=== PATIENT | female | born 1990 | race American Indian/Alaskan Native ===

== ENCOUNTER 2017-09-04 17:52 | Emergency (ER) | payer OTHER ==
[2017-09-04 19:03] LABS: Basophils % (Auto) 0.4 % (0.0-1.8); Eosinophils % (Auto) 0.6 % (0.0-4.3); Hematocrit 34.7 % (30.3-42.9); Hemoglobin 11.7 gm/dl (10.1-14.3); Lymphocytes # (Auto) 2.6 K/mm3 (1.2-5.4); Lymphocytes % (Auto) 43.4 % (13.4-35.0); Mean Corpuscular HGB Conc 34 % (30-34); Mean Corpuscular Hemoglobin 31 pg (28-32); Mean Corpuscular Volume 92 fl (79-97); Monocytes # (Auto) 0.5 K/mm3 (0.0-0.8); Monocytes % (Auto) 8.2 % (0.0-7.3); Platelet Count 324 K/mm3 (140-440); Red Blood Count 3.77 M/mm3 (3.65-5.03); Red Cell Distribution Width 13.7 % (13.2-15.2)
[2017-09-04 19:21] LABS: Alanine Aminotransferase 22 units/L (7-56); Albumin 4.3 g/dL (3.9-5); BUN/Creatinine Ratio 20; Blood Urea Nitrogen 10 mg/dL (7-17); Hemolysis Index 3
[2017-09-05 03:48] VITALS: BP 120/64
--- NOTE | 2017-09-05 04:42 | Ultrasound Report ---
FINAL REPORT EXAM: US OB TRANSVAGINAL HISTORY: Vaginal Bleeding TECHNIQUE: Transvaginal imaging was obtained of the pelvis with Doppler interrogation of the adnexa and uterus. FINDINGS: The uterus is anteverted measuring 10.4 cm x 6 cm x 6 cm. Within the uterus is a gestational sac with mean sac diameter 13.2 mm. There is corresponds to a 6 week 1 day . A yolk sac is seen. A pole is not identified. To the right of this is an additional cystic area in the uterus measuring 5 mm x 6 mm x 9 mm. As to whether this represents a subchorionic bleed versus an additional gestational sac is uncertain. There is a moderate amount of free fluid in the cul-de-sac. The right ovary measures 5.7 cm x 3.5 cm x 5.1 cm. There is a dominant anechoic cyst in the right ovary measures 3.4 cm in diameter. Additional benign follicles seen in the right ovary. The left ovary measures 5 cm x 3.3 cm x 3.7 cm. There are functional cyst in left ovary the largest measuring 2.7 cm in diameter. IMPRESSION: Intrauterine gestational sac corresponding to 6 week 1 day . A pole is not seen. Follow-up imaging is recommended to confirm an IUP or an incomplete . Additional cystic area in the right side of the uterus adjacent to the gestational sac. As to whether this represents a subchorionic hemorrhage or additional intrauterine gestational sac is uncertain. Once again follow-up study recommended. Moderate amount of free fluid in the cul-de-sac. An occult ectopic still cannot entirely be excluded. Anechoic functional cysts in both ovaries noted.
--- NOTE | 2017-09-05 04:45 | Ultrasound Report ---
FINAL REPORT EXAM: US OB < = 14 WEEKS FETUS HISTORY: pain TECHNIQUE: Transabdominal imaging was obtained the pelvis including Doppler interrogation of the adnexa. FINDINGS: The uterus is anteverted measuring 10.4 cm x 6 cm x 6 cm. Within the uterus is a gestational sac measuring 13.2 mm in diameter corresponding to a 6 week 1 day . Within the sac is a yolk sac. An embryo is not seen. Adjacent to the sac in the right-sided uterus is an additional sac-like structure. As to whether this represents 2nd gestational sac or possible subchorionic bleed is uncertain. It measures 5 mm x 6 mm x 9 mm. There is a moderate amount of free fluid in the pelvis. The right ovary measures 5.7 cm x 3.5 cm x 5.1 cm and reveals several functional cysts the largest measuring 3.4 cm in diameter. The left ovary measures 5 cm x 3.3 cm x 3.7 cm. There are benign-appearing follicles in left ovary with a functional cyst measuring up to 2.7 cm in diameter. The blood flow is normal to both ovaries. IMPRESSION: Intrauterine gestational sac corresponding to 6 week 1 day . A pole is not seen at this time. Repeat imaging is recommended to confirm a viable IUP or confirm retained products of conception. Additional cystic structure in the right-sided uterus as described. As to whether this represents an additional gestational sac or subchorionic hemorrhage is uncertain. Moderate amount of free fluid in the cul-de-sac. Given amount of fluid and occult ectopic cannot entirely be excluded. Benign functional cysts in both ovaries. No evidence of ovarian torsion
--- NOTE | 2017-09-05 04:48 | Emergency Department Report ---
ED Abdominal Pain HPI - General Chief Complaint: Abdominal Pain Stated Complaint: ABDOMINAL PAIN/NAUSEA Time Seen by Provider: 09/05/17 02:14 Source: patient Mode of arrival: Ambulatory Limitations: No Limitations - History of Present Illness MD Complaint: abdominal pain -: Gradual, week(s) (1) Location: suprapubic Radiation: back (lower back) Migration to: no migration Severity: mild Severity scale (0 -10): 2 Quality: aching Consistency: intermittent Improves With: nothing Worsens With: nothing Context: other (hx gastric bypass. Reports she called her surgeon in [place] who recommended the patient head to the ER for evaluation. ) Associated Symptoms: nausea. denies: vomiting, diarrhea, chills, constipation, dysuria, hematemesis, melena, hematuria, anorexia, syncope - Related Data LMP (females 10-50): 1 month Allergies Allergy/AdvReac Type Severity Reaction Status Date / Time cephalexin [From Keflex] Allergy Vomiting Verified 09/04/17 18:03 ED Review of Systems ROS: Stated complaint: ABDOMINAL PAIN/NAUSEA Other details as noted in HPI Other: GENERAL: No weight change, fatigue, weakness, fever, chills, or night sweats SKIN: No changes in skin or hair, no itching, no rashes, no jaundice HEAD: No trauma, headache, or visual changes EYES: No blurriness, tearing, itching, acute visual loss, conjunctival discoloration, or scleral icterus EARS: No hearing loss, tinnitus, vertigo, or earache NOSE: No rhinorrhea, stuffiness, sneezing, itching, or epistaxis MOUTH: No bleeding gums, hoarseness, sore throat, or swelling CARDIAC: No new murmur, chest pain, palpitations, dyspnea on exertion, orthopnea , PND, or edema RESPIRATORY: No shortness of breath, wheeze, cough, sputum production, hemoptysis, pneumonia, asthma, bronchitis, or emphysema GI: No change in appetite,vomiting, dysphagia, change in bowel frequency, diarrhea, constipation, bleeding, hematemesis, melena, hematochezia URINARY: No frequency, urgency, polyuria, dysuria, hematuria, or incontinence MUSCULOSKELETAL: No muscle weakness, joint stiffness, decrease in range of motion, redness, swelling NEUROLOGIC: No loss of sensation, numbness, tingling, tremors, weakness, paralysis, seizures HEMATOLOGIC: No anemia, easy bruising, bleeding, petechiae, or purpura ENDOCRINE: No hot or cold intolerance, sweating, polyuria, polydipsia or, polyphagia no thyroid problems PSYCHIATRIC: No change in mood, no anxiety, no depression GENITAL: Female: Missed last menstrual period and did not take a home test. no frequency or dysmenorrhea, no discharge, no bleeding ED Past Medical Hx - Past Medical History Previous Medical History?: No - Surgical History Additional Surgical History: gastric bypass - Social History Smoking Status: Never Smoker Substance Use Type: Alcohol ED Physical Exam - General Limitations: No Limitations - Other Other exam information: GENERAL: Patient in no acute distress HEAD: Normocephalic, atraumatic EYES: PERRLA, EOM intact, no scleral icterus, visual calzada and acuity wnl HEART: Regular rate and rhythm, no murmur, S1-S2 are auscultated, pulses are symmetric LUNGS: bilateral breath sounds. No wheezing, rales, rhonchi ABDOMEN: Normal bowel sounds, no tenderness, no rebound, no guarding, no masses , no CVA tenderness MUSCULOSKELETAL: Normal joint range of motion, no redness, no swelling, no tenderness NEUROLOGIC: GCS 15, Alert and Oriented x3, Cranial nerves intact, normal sensation, normal strength, normal gait, no cerebellar deficit PSYCHIATRIC: No homicidal or suicidal ideation, no anxiety, no depression, no hallucinations SKIN: Skin is warm and dry, no wounds, no rashes ED Course Vital Signs 09/04/17 09/05/17 09/05/17 18:03 02:05 02:08 Temperature 99.2 F Pulse Rate 78 75 Respiratory 18 18 18 Rate Blood Pressure 123/73 Blood Pressure 139/88 [Right] O2 Sat by Pulse 100 Oximetry 09/05/17 03:48 Temperature 98.5 F Pulse Rate 66 Respiratory 18 Rate Blood Pressure Blood Pressure 120/64 [Right] O2 Sat by Pulse 100 Oximetry ED Medical Decision Making - Lab Data Result diagrams: 09/04/17 18:28 09/04/17 18:28 Laboratory Results - last 24 hr 09/04/17 09/04/17 09/04/17 18:28 18:28 18:28 WBC 5.9 RBC 3.77 Hgb 11.7 Hct 34.7 MCV 92 MCH 31 MCHC 34 RDW 13.7 Plt Count 324 Lymph % (Auto) 43.4 H Nobles % (Auto) 8.2 H Eos % (Auto) 0.6 Baso % (Auto) 0.4 Lymph # 2.6 Nobles # 0.5 Eos # 0.0 Baso # 0.0 Seg Neutrophils % 47.4 Seg Neutrophils # 2.8 Sodium 139 Potassium 4.0 Chloride 101.5 Carbon Dioxide 24 Anion Gap 18 BUN 10 Creatinine 0.5 L Estimated GFR > 60 BUN/Creatinine Ratio 20 Glucose 84 Calcium 9.0 Total Bilirubin 0.60 AST 19 ALT 22 Alkaline Phosphatase 63 Total Protein 7.5 Albumin 4.3 Albumin/Globulin Ratio 1.3 Lipase HCG, Qual Positive HCG, Quant 09/05/17 09/05/17 02:34 02:34 WBC RBC Hgb Hct MCV MCH MCHC RDW Plt Count Lymph % (Auto) Nobles % (Auto) Eos % (Auto) Baso % (Auto) Lymph # Nobles # Eos # Baso # Seg Neutrophils % Seg Neutrophils # Sodium Potassium Chloride Carbon Dioxide Anion Gap BUN Creatinine Estimated GFR BUN/Creatinine Ratio Glucose Calcium Total Bilirubin AST ALT Alkaline Phosphatase Total Protein Albumin Albumin/Globulin Ratio Lipase 21 HCG, Qual HCG, Quant 08471 H - Radiology Data Radiology results: report reviewed - Medical Decision Making At [address] OB updated. Recommends discharge with outpatient follow up. Patient comfortable. Updated with results. Plan discharge with outpatient follow up. Agrees to return if worsening. Critical care attestation.: If time is entered above; I have spent that time in minutes in the direct care of this critically ill patient, excluding procedure time. ED Disposition Clinical Impression: Abdominal pain affecting Disposition: - TO HOME OR SELFCARE Is pt being admited?: No Condition: Stable Instructions: Abdominal Pain in (ED) Referrals: KAREN CLAY MD [Primary Care Provider] - 2-3 Days STEVEN SILVER MD [Staff Physician] - 2-3 Days [facility] [Outside] - as needed Time of Disposition: 05:22
== END 2017-09-05 05:35 | disposition home or self-care (01) ==
LOC: ED 17:52
DX: O26.891 Other specified pregnancy related conditions, first trimester (principal); R10.9 Unspecified abdominal pain; Z3A.01 Less than 8 weeks gestation of pregnancy
CPT/HCPCS: 36415; 76801; 76817; 80053; 83690; 84702; 84703; 85025; 99284

== ENCOUNTER 2017-09-14 06:40 | Emergency (ER) | payer OTHER ==
[2017-09-14 09:36] LABS: Bilirubin,Urine NEG (Negative); Blood,Urine NEG (Negative); Color,Urine Amber (Yellow); Mucus,Urine 3+ /HPF
[2017-09-14 09:37] LABS: HCG Qualitative,Urine Negative (Negative)
[2017-09-14] MEDS ORDERED: TYLENOL PO ONE (10:42)
--- NOTE | 2017-09-14 10:43 | Emergency Department Report ---
ED General Adult HPI - General Chief complaint: Abdominal Pain Stated complaint: ABD PAIN Time Seen by Provider: 09/14/17 10:30 Source: patient, family, RN notes reviewed, old records reviewed Mode of arrival: Stretcher Limitations: No Limitations - History of Present Illness Initial comments: This is a 27-year-old female who is unknown to this provider previously. She has a past surgical history for gastric bypass in October 2016, is 1, para 0, reports her last menstrual period is July 29. Her [facility]NAGER physician is with [facility]. Patient was seen in this emergency department last week with a complaint of abdominal pain. Patient had an ultrasound which showed an intrauterine gestational sac corresponding to a 6 week 1 day . In addition, there was an additional cystic area in the right side of the uterus adjacent to the gestational sac, uncertain if this represented a subchorionic hemorrhage on additional intrauterine gestational sac. In addition, she was also found to have moderate amount of free fluid in the cul-de-sac, with an occult ectopic is not excluded. The patient presents to the ER with a complaint of abdominal pain. The abdominal pain is suprapubic. It does not radiate anywhere. It increases with palpation and decreases with rest. The patient reports the pain has been present for 3 weeks. She denies irritative urinary symptoms, she does report constipation. She last defecated 3 days ago. She is passing gas. She reports that today while attempting to defecate she was straining so hard that she fell off of the toilet, hit her right shoulder thinks she may have passed out for a quick second but is not sure. She denies chest pain, shortness of breath, leg pain, leg swelling. -: Gradual Radiation: abdomen Severity scale (0 -10): 0 Quality: aching Consistency: intermittent Improves with: rest Worsens with: movement, other (attempting to defecate) Associated Symptoms: loss of appetite, malaise, nausea/vomiting, syncope, weakness. denies: confusion, chest pain, cough, diaphoresis, fever/chills, headaches, rash, seizure, shortness of breath - Related Data Home Medications Medication Instructions Recorded Confirmed Last Taken Ondansetron [Zofran Odt] 4 mg PO PRN PRN 09/14/17 09/14/17 Unknown Previous Rx's Medication Instructions Recorded Last Taken Type Acetaminophen [Tylenol Arthritis] 650 mg PO Q6HR PRN #30 tablet.er 09/14/17 Unknown Rx Doxylamine Succinate/Vit B6 1 each PO QHS PRN #30 tablet. 09/14/17 Unknown Rx [Marcella Dutta 10-10 mg Tablet] Vit Calc,Iron,Folic 1 each PO QDAY #30 tablet 09/14/17 Unknown Rx [ Vitamins] Allergies Allergy/AdvReac Type Severity Reaction Status Date / Time cephalexin [From Keflex] Allergy Vomiting Verified 09/14/17 06:52 ED Review of Systems ROS: Stated complaint: ABD PAIN Other details as noted in HPI Constitutional: denies: fever Eyes: denies: vision change ENT: denies: epistaxis Respiratory: denies: cough Cardiovascular: syncope. denies: chest pain Gastrointestinal: abdominal pain, constipation Genitourinary: denies: dysuria Musculoskeletal: arthralgia (complains of right shoulder pain) Skin: denies: lesions Neurological: denies: headache, weakness Psychiatric: anxiety ED Past Medical Hx - Past Medical History Hx Hypertension: Yes Hx Diabetes: Yes Additional medical history: hyperlipidemia - Surgical History Past Surgical History?: No Additional Surgical History: gastric bypass - Social History Smoking Status: Never Smoker Substance Use Type: None - Medications Home Medications: Home Medications Medication Instructions Recorded Confirmed Last Taken Type Acetaminophen [Tylenol Arthritis] 650 mg PO Q6HR PRN #30 tablet.er 09/14/17 Unknown Rx Doxylamine Succinate/Vit B6 1 each PO QHS PRN #30 tablet. 09/14/17 Unknown Rx [Marcella Dutta 10-10 mg Tablet] Ondansetron [Zofran Odt] 4 mg PO PRN PRN 09/14/17 09/14/17 Unknown History Vit Calc,Iron,Folic 1 each PO QDAY #30 tablet 09/14/17 Unknown Rx [ Vitamins] ED Physical Exam - General Limitations: No Limitations General appearance: alert, in no apparent distress - Head Head exam: Present: atraumatic, normocephalic - Eye Eye exam: Present: normal appearance, PERRL, EOMI, other (visual acuity intact to finger counting, color perception, reading at a close distance). Absent: nystagmus - ENT ENT exam: Present: normal exam, normal orophraynx, mucous membranes moist, normal external ear exam - Neck Neck exam: Present: normal inspection, full ROM - Respiratory Respiratory exam: Present: normal lung sounds bilaterally. Absent: respiratory distress, chest wall tenderness - Cardiovascular Cardiovascular Exam: Present: regular rate, normal rhythm, normal heart sounds. Absent: systolic murmur, diastolic murmur, rubs, gallop - GI/Abdominal GI/Abdominal exam: Present: soft, tenderness (there is suprapubic tenderness. There is no right lower quadrant tenderness. There is no right upper quadrant tenderness), normal bowel sounds. Absent: distended - Extremities Exam Extremities exam: Present: normal inspection, full ROM, normal capillary refill , other (Extraocular movements intact. Tongue midline. No facial droop. Facial sensation intact to light touch in the V1, V2, V3 distribution bilaterally. 5 and 5 strength in 4 extremities.. Sensation is intact to light touch in 4 extremities.). Absent: pedal edema, joint swelling, calf tenderness - Back Exam Back exam: Present: normal inspection, full ROM, other (full range of motion to the right shoulder. There is no redness, pus or streaking. There is no obvious deformity.). Absent: paraspinal tenderness, vertebral tenderness - Neurological Exam Neurological exam: Present: alert, oriented X3, CN II-XII intact, normal gait, other (Extraocular movements intact. Tongue midline. No facial droop. Facial sensation intact to light touch in the V1, V2, V3 distribution bilaterally. 5 and 5 strength in 4 extremities.. Sensation is intact to light touch in 4 extremities.). Absent: motor sensory deficit - Psychiatric Psychiatric exam: Present: normal affect, normal mood - Skin Skin exam: Present: warm, dry, intact, normal color. Absent: rash ED Course Vital Signs 09/14/17 09/14/17 09/14/17 06:50 06:54 09:25 Temperature 98.1 F 98.1 F Pulse Rate 76 76 70 Pulse Rate [ Lying] Pulse Rate [ Sitting] Pulse Rate [ Standing] Respiratory 18 18 16 Rate Blood Pressure 110/64 108/54 Blood Pressure [Lying] Blood Pressure 110/64 [Right] Blood Pressure [Sitting] Blood Pressure [Standing] O2 Sat by Pulse 100 100 100 Oximetry 09/14/17 09/14/17 09/14/17 09:30 09:36 09:46 Temperature Pulse Rate Pulse Rate [ Lying] Pulse Rate [ Sitting] Pulse Rate [ Standing] Respiratory 16 Rate Blood Pressure 105/54 105/54 Blood Pressure [Lying] Blood Pressure [Right] Blood Pressure [Sitting] Blood Pressure [Standing] O2 Sat by Pulse 100 99 100 Oximetry 09/14/17 09/14/17 09/14/17 10:00 10:16 10:30 Temperature Pulse Rate Pulse Rate [ Lying] Pulse Rate [ Sitting] Pulse Rate [ Standing] Respiratory Rate Blood Pressure 109/58 109/58 119/63 Blood Pressure [Lying] Blood Pressure [Right] Blood Pressure [Sitting] Blood Pressure [Standing] O2 Sat by Pulse 99 100 100 Oximetry 09/14/17 09/14/17 09/14/17 10:46 11:00 11:16 Temperature Pulse Rate Pulse Rate [ Lying] Pulse Rate [ Sitting] Pulse Rate [ Standing] Respiratory Rate Blood Pressure 119/63 120/59 109/58 Blood Pressure [Lying] Blood Pressure [Right] Blood Pressure [Sitting] Blood Pressure [Standing] O2 Sat by Pulse 100 100 99 Oximetry 09/14/17 11:21 Temperature Pulse Rate Pulse Rate [ 64 Lying] Pulse Rate [ 65 Sitting] Pulse Rate [ 75 Standing] Respiratory Rate Blood Pressure Blood Pressure 112/52 [Lying] Blood Pressure [Right] Blood Pressure 116/56 [Sitting] Blood Pressure 120/59 [Standing] O2 Sat by Pulse Oximetry - Reevaluation(s) Reevaluation #1: 09/14/17 11:10 Differential diagnosis, including but not limited to: Constipation, miscarriage , orthostasis, shoulder contusion Assessment and plan: 27-year-old female with a first lifetime , history of gastric bypass, with a few weeks of constipation, no right lower quadrant abdominal pain, as per her family/mother, patient is not eating or drinking adequate quantity of water, nor is she consuming enough fruits, fibers , vegetables. Patient reports episode of possible syncope while attempting to defecate, this is most likely a vasovagal event versus orthostatic. She's not had any episodes of tachycardia or hypoxia while here in the emergency department. Extensive discussion had with the patient and her mother. THE patient to start diet and lifestyle modifications, including increasing water consumption and to consume more fruits, fibers, vegetables. In addition, I have counseled her to follow-up with a local bariatric surgeon for her history of gastric bypass. We will repeat her laboratory studies, provide soapsuds enema, check a type and screen as was not performed last time repeat her pelvic ultrasound. We will reassess. Given the constellation of information and data, I highly doubt this her episode of syncope was preceded by a pulmonary embolus. 09/14/17 11:11 Reevaluation #2: 09/14/17 14:09 Patient had a very large bowel movement after the soap suds enema, and reports that she feels much improved. Belly soft on repeat exam. She is Rh-. RhoGAM is ordered. No active vomiting. No episodes of loss of consciousness. Pelvic ultrasound interpretation is pending at this time. Reevaluation #3: 09/14/17 15:07 The patient is Rh-. She is given RhoGAM. Ultrasound demonstrates the following findings: Impressions: 1. Intrauterine twin with only one viable fetus identified. 2. Large right ovarian cyst most likely representing corpus luteum. 3. Uterine fibroid. Belly remained soft on repeat examination. Patient will be discharged at this time. Diet and lifestyle medications have been exhaustively reviewed. ED Medical Decision Making - Lab Data Result diagrams: 09/14/17 11:34 09/14/17 11:34 Vital Signs 09/14/17 09/14/17 09/14/17 06:50 06:54 09:25 Temperature 98.1 F 98.1 F Pulse Rate 76 76 70 Respiratory 18 18 16 Rate Blood Pressure 110/64 108/54 Blood Pressure 110/64 [Right] O2 Sat by Pulse 100 100 100 Oximetry 09/14/17 09/14/17 09/14/17 09:30 09:36 09:46 Temperature Pulse Rate Respiratory 16 Rate Blood Pressure 105/54 105/54 Blood Pressure [Right] O2 Sat by Pulse 100 99 100 Oximetry 09/14/17 09/14/17 09/14/17 10:00 10:16 10:30 Temperature Pulse Rate Respiratory Rate Blood Pressure 109/58 109/58 119/63 Blood Pressure [Right] O2 Sat by Pulse 99 100 100 Oximetry 09/14/17 10:46 Temperature Pulse Rate Respiratory Rate Blood Pressure 119/63 Blood Pressure [Right] O2 Sat by Pulse 100 Oximetry Lab Results 09/14/17 Range/Units 09:00 Urine Color Christy (Yellow) Urine Turbidity Clear (Clear) Urine pH 5.0 (5.0-7.0) Ur Specific Winnie 1.029 (1.003-1.030) Urine Protein 30 mg/dl (Negative) mg/dL Urine Glucose (UA) Neg (Negative) mg/dL Urine Ketones 80 (Negative) mg/dL Urine Blood Neg (Negative) Urine Nitrite Neg (Negative) Urine Bilirubin Neg (Negative) Urine Urobilinogen 4.0 (<2.0) mg/dL Ur Leukocyte Esterase Neg (Negative) Urine WBC (Auto) 2.0 (0.0-6.0) /HPF Urine RBC (Auto) 3.0 (0.0-6.0) /HPF U Epithel Cells (Auto) 8.0 (0-13.0) /HPF Urine Mucus 3+ /HPF Urine HCG, Qual Negative (Negative) - EKG Data -: EKG Interpreted by Ms EKG shows normal: sinus rhythm, axis, intervals, QRS complexes, ST-T waves - Radiology Data Radiology results: report reviewed, image reviewed Print Report Referring Physician: IVANNA ZULUAGA Patient Name: DAINA TEE Date of : 1990 Sex: Female Report Date: 2017-09-14 Report Status: Finalized Findings [facility] [address] [place] [address] Ultrasound Report Signed Patient: DAINA TEE MR#: [id number] : 1990 Acct:[id number] Age/Sex: 27 / F ADM Date: 09/14/17 Loc: ED Attending Dr: Ordering Physician: IVANNA ZULUAGA MD Date of Service: 09/14/17 Procedure(s): US OB transvaginal Accession Number(s): [id number] cc: IVANNA ZULUAGA MD OB ultrasound: with cramping. Endovaginal and transabdominal imaging performed. There is an anteverted uterus measuring 6.2 x 8.1 x 11 cm. A single myometrial isoechoic mass noted on the right side measuring 2.2 cm. There is a twin within the endometrium. Baby A is on the right side and has a pole is 9.6 mm equivalent to a 7 week zero day gestation. heart motion 137 beats minute is identified. On the left there is an empty gestational sac measuring 2.5 mm which would be equivalent to a 7 week 4 day gestation. The right ovary measures 6.2 cm and contains a 3.9 cm cyst. The left ovary measures 4.9 cm and contains a 1.5 cm cyst. Is a moderate volume of clear free fluid in the posterior cul-de-sac. Impressions: 1. Intrauterine twin with only one viable fetus identified. 2. Large right ovarian cyst most likely representing corpus luteum. 3. Uterine fibroid. Transcribed By: TAMMY Dictated By: ISAÍAS AVILES MD Electronically Authenticated By: MARY Critical care attestation.: If time is entered above; I have spent that time in minutes in the direct care of this critically ill patient, excluding procedure time. ED Disposition Clinical Impression: Constipation, Twin gestation in first trimester Disposition: - TO HOME OR SELFCARE Is pt being admited?: No Does the pt Need Aspirin: No Condition: Stable Instructions: Constipation (ED), High Fiber Diet (ED) Additional Instructions: Rest, and avoid heavy lifting. Avoid strenuous physical activity. Drink 6-8 cups of water per day. Eat plenty of fruits, fibers, vegetables. Constipation may take 4-6 weeks to completely improve. Follow-up with your bank analyst within the next week. Ultrasound demonstrated the following findings: Impressions: 1. Intrauterine twin with only one viable fetus identified. 2. Large right ovarian cyst most likely representing corpus luteum. 3. Uterine fibroid. Please note that one of the twin gestation is not viable, and patient will likely experience a miscarriage. Patient should not have sex until cleared by a bank analyst. In addition, patient should follow-up with a bariatric surgeon within the next month. Dr. Saunders is a local bariatric surgeon. Return to the ER right away with new pain, worsened pain, migration of pain, fevers, chills, lethargy, irritability, projectile vomiting, change in mental status, confusion, inability to tolerate liquid feeds. Referrals: PRIMARY CARE, [Primary Care Provider] - 3-5 Days [facility] [Provider Group] - 3-5 Days RACHEL SAUNDERS MD [Staff Physician] - 3-5 Days
[2017-09-14] MEDS ORDERED: D5/0.45NS 1,000 ML IV SCH (11:00)
[2017-09-14 11:55] LABS: Basophils % (Auto) 0.4 % (0.0-1.8); Eosinophils % (Auto) 0.3 % (0.0-4.3); Hematocrit 33.8 % (30.3-42.9); Hemoglobin 11.5 gm/dl (10.1-14.3); Lymphocytes # (Auto) 1.8 K/mm3 (1.2-5.4); Lymphocytes % (Auto) 26.5 % (13.4-35.0); Mean Corpuscular HGB Conc 34 % (30-34); Mean Corpuscular Hemoglobin 31 pg (28-32); Mean Corpuscular Volume 92 fl (79-97); Monocytes # (Auto) 0.6 K/mm3 (0.0-0.8); Monocytes % (Auto) 8.5 % (0.0-7.3); Red Blood Count 3.68 M/mm3 (3.65-5.03); Red Cell Distribution Width 13.2 % (13.2-15.2)
[2017-09-14 12:03] LABS: Platelet Count 294 K/mm3 (140-440)
[2017-09-14] MEDS: ZOFRAN IV ONE ×2 (12:08→14:07)
[2017-09-14 12:12] LABS: Alanine Aminotransferase 16 units/L (7-56); BUN/Creatinine Ratio 25; Blood Urea Nitrogen 10 mg/dL (7-17); Calcium 9.3 mg/dL (8.4-10.2); Hemolysis Index 11
[2017-09-14] MEDS ORDERED: ZOFRAN ONE (14:02)
--- NOTE | 2017-09-14 14:33 | Ultrasound Report ---
OB ultrasound: with cramping. Endovaginal and transabdominal imaging performed. There is an anteverted uterus measuring 6.2 x 8.1 x 11 cm. A single myometrial isoechoic mass noted on the right side measuring 2.2 cm. There is a twin within the endometrium. Baby A is on the right side and has a pole is 9.6 mm equivalent to a 7 week zero day gestation. heart motion 137 beats minute is identified. On the left there is an empty gestational sac measuring 2.5 mm which would be equivalent to a 7 week 4 day gestation. The right ovary measures 6.2 cm and contains a 3.9 cm cyst. The left ovary measures 4.9 cm and contains a 1.5 cm cyst. Is a moderate volume of clear free fluid in the posterior cul-de-sac. Impressions: 1. Intrauterine twin with only one viable fetus identified. 2. Large right ovarian cyst most likely representing corpus luteum. 3. Uterine fibroid.
[2017-09-14 15:42] VITALS: BP 116/64
== END 2017-09-14 15:42 | disposition home or self-care (01) ==
LOC: ED 06:40
DX: O26.891 Other specified pregnancy related conditions, first trimester (principal); K59.00 Constipation, unspecified; I10 Essential (primary) hypertension; E11.9 Type 2 diabetes mellitus without complications; E78.5 Hyperlipidemia, unspecified; Z88.1 Allergy status to other antibiotic agents; Z3A.01 Less than 8 weeks gestation of pregnancy
CPT/HCPCS: 36415; 76802; 76817; 80053; 81001; 81025; 83735; 84702; 85025; 86850; 86900; 86901; 93005; 93010; 96374; 99285; J2405; J2790

== ENCOUNTER 2017-09-26 12:53 | Inpatient (IN) | payer OTHER ==
[2017-09-26] MEDS ORDERED: ZOFRAN IV PRN (13:48)
[2017-09-26] MEDS ORDERED: D5LR 1,000 ML IV SCH ×2 (14:00)
[2017-09-26 16:05] LABS: Hematocrit 33.3 % (30.3-42.9); Hemoglobin 11.6 gm/dl (10.1-14.3); Mean Corpuscular HGB Conc 35 % (30-34); Mean Corpuscular Hemoglobin 31 pg (28-32); Mean Corpuscular Volume 89 fl (79-97); Platelet Count 239 K/mm3 (140-440); Red Blood Count 3.74 M/mm3 (3.65-5.03); Red Cell Distribution Width 12.6 % (13.2-15.2)
[2017-09-26 16:26] LABS: Lipase 147 units/L (13-60)
[2017-09-26 16:29] LABS: Alanine Aminotransferase 12 units/L (7-56); Albumin 4.1 g/dL (3.9-5); BUN/Creatinine Ratio 28; Blood Urea Nitrogen 11 mg/dL (7-17); Calcium 9.7 mg/dL (8.4-10.2); Hemolysis Index 11
[2017-09-26 16:31] LABS: Bilirubin,Direct < 0.2 mg/dL (0-0.2)
[2017-09-26 16:42] LABS: Hepatitis A Antibody IgM Non-Reactive (NonReactive); Hepatitis B Core IgM Non-Reactive (NonReactive); Hepatitis B Surface Antigen Non-Reactive (Negative); Hepatitis C Virus Antibody Non-Reactive (NonReactive)
[2017-09-26] MEDS: PHENERGAN PR SCH ×2 (17:11→22:26)
[2017-09-26] MEDS: REGLAN IV SCH ×2 (17:11→21:21)
--- NOTE | 2017-09-26 17:46 | History and Physical Report ---
History of Present Illness Date of examination: 09/26/17 Date of admission: 09/26/17 13:48 Chief complaint: sever nausea and vomiting in with significant weight loss History of present illness: This is a 27 yo at 8 weeks came in for appt for OB. Patient has been seen prior and noted to have twin with one loss. She states that she has lost 40 pounds since beginning of starting out at 225 current weight 189. Mother states that she can not keep food down and unable to eat anything for over 1 week. She has a hx of gastric bypass surgery. She also has a hx of diabets, herpes, sleep apnea, pcos, and hypertension. She denies any vaginal bleeding. Minimal cramping nor urinary sx. Past History Past Medical History: hypertension, diabetes, other (sleep apnea and obesity) Past Surgical History: gastric bypass, other (nose surgery ) Family/Genetic History: diabetes, hypertension Social history: no significant social history, single, alcohol abuse. denies: smoking, prescription drug abuse - Obstetrical History Expected Date of Delivery: 05/05/18 Actual Gestation: 8 Week(s) 3 Day(s) Medications and Allergies Allergies Allergy/AdvReac Type Severity Reaction Status Date / Time cephalexin [From Keflex] Allergy Vomiting Verified 09/14/17 06:52 Home Medications Medication Instructions Recorded Confirmed Last Taken Type Acetaminophen [Tylenol Arthritis] 650 mg PO Q6HR PRN #30 tablet.er 09/14/17 Unknown Rx Doxylamine Succinate/Vit B6 1 each PO QHS PRN #30 tablet. 09/14/17 Unknown Rx [Marcella Dutta 10-10 mg Tablet] Ondansetron [Zofran Odt] 4 mg PO PRN PRN 09/14/17 09/14/17 Unknown History Vit Calc,Iron,Folic 1 each PO QDAY #30 tablet 09/14/17 Unknown Rx [ Vitamins] Active Meds: Active Medications Lactated Ringer's (Lactated Ringers) 1,000 mls @ 125 mls/hr IV DIRECT HALEY Dextrose/Lactated Ringer's (D5lr) 1,000 mls @ 500 mls/hr IV DIRECT HALEY Stop: 09/27/17 15:59 Last Admin: 09/26/17 17:11 Dose: 500 mls/hr Dextrose/Lactated Ringer's (D5lr) 1,000 mls @ 150 mls/hr IV DIRECT HALEY Metoclopramide HCl (Reglan) 10 mg IV Q6H [facility] Last Admin: 09/26/17 17:11 Dose: 10 mg Multivitamins/Iron/Calcium ( Vitamin) 1 each PO QDAY [facility] Ondansetron HCl (Zofran) 4 mg IV Q6H PRN PRN Reason: N/V unrelieved by Reglan Promethazine HCl (Phenergan) 25 mg [place] Q6H [facility] Last Admin: 09/26/17 17:11 Dose: 25 mg Review of Systems All systems: negative Gastrointestinal: nausea, vomiting - Vital Signs Vital signs: Vital Signs Temp Pulse Resp BP Pulse Ox 98.9 F 75 16 113/57 100 09/26/17 16:41 09/26/17 16:41 09/26/17 16:41 09/26/17 16:41 09/26/17 16:41 Temp Pulse Resp BP Pulse Ox 98.9 F 75 16 113/57 100 09/26/17 16:41 09/26/17 16:41 09/26/17 16:41 09/26/17 16:41 09/26/17 16:41 - Physical Exam Breasts: Positive: normal Cardiovascular: Regular rate, Normal S1 Lungs: Positive: Clear to auscultation, Normal air movement Abdomen: Positive: normal appearance, soft, tenderness, normal bowel sounds. Negative: distention, guarding Extremities: Positive: normal Deep Tendon Reflex Grade: Normal +2 Results Result Diagrams: 09/26/17 15:35 09/26/17 15:35 Abnormal lab results 09/26/17 09/26/17 09/26/17 Range/Units 15:35 15:35 15:35 MCHC 35 H (30-34) % RDW 12.6 L (13.2-15.2) % Sodium 135 L (137-145) mmol/L Chloride 96.2 L (98-107) mmol/L Carbon Dioxide 17 L (22-30) mmol/L Creatinine 0.4 L (0.7-1.2) mg/dL Magnesium 1.60 L (1.7-2.3) mg/dL Lipase 147 H (13-60) units/L TSH (0.270-4.200) mlU/mL 09/26/17 Range/Units 15:35 MCHC (30-34) % RDW (13.2-15.2) % Sodium (137-145) mmol/L Chloride (98-107) mmol/L Carbon Dioxide (22-30) mmol/L Creatinine (0.7-1.2) mg/dL Magnesium (1.7-2.3) mg/dL Lipase (13-60) units/L TSH 0.011 L (0.270-4.200) mlU/mL All other labs normal. Assessment and Plan IUP 8 weeks ( pratt IUP with loss of twin gestation ( di/di) Hyperemesis gravidarum IVF, labs IV antiemetics reglan, phenergan, zofran close monitor NPO advance as tolerated
[2017-09-26] MEDS: LACTATED RINGERS 1,000 ML IV SCH (22:44)
[2017-09-27] MEDS: REGLAN IV SCH ×4 (01:26→20:51)
[2017-09-27] MEDS: PHENERGAN PR SCH ×4 (01:28→20:00)
[2017-09-27 03:15] LABS: Bacteria,Urine 2+ /HPF (Negative); Bilirubin,Urine NEG (Negative); Blood,Urine NEG (Negative); Color,Urine Yellow (Yellow); Hyaline Casts,Urine 18 /LPF; Mucus,Urine 3+ /HPF
[2017-09-27] MEDS: LACTATED RINGERS 1,000 ML IV SCH ×3 (06:39→20:52)
--- NOTE | 2017-09-27 09:13 | Progress Note ---
Assessment and Plan A: IUP at 7 weeks Hyperemesis P: Progress diet Wean meds to po Subjective - Subjective Date of service: 09/27/17 Patient reports: new complaints, other (no vomiting since admit. Nausea only), no loss of fluid, no vaginal bleeding, no movement normal, no contractions Objective - Vital Signs Vital Signs: Vital Signs - 12hr 09/27/17 09/27/17 09/27/17 00:59 05:05 07:20 Temperature 98.4 F 98.2 F 98.8 F Pulse Rate 76 75 73 Respiratory 18 18 18 Rate Blood Pressure 113/63 112/57 110/57 [Right] O2 Sat by Pulse 100 Oximetry - Exam Breasts: deferred Abdomen: Present: normal appearance, soft. Absent: distention, tenderness - Labs Labs: Abnormal Labs 09/26/17 09/26/17 09/26/17 15:35 15:35 15:35 MCHC 35 H RDW 12.6 L Sodium 135 L Chloride 96.2 L Carbon Dioxide 17 L Creatinine 0.4 L Magnesium 1.60 L Lipase 147 H TSH 09/26/17 15:35 MCHC RDW Sodium Chloride Carbon Dioxide Creatinine Magnesium Lipase TSH 0.011 L Laboratory Results - last 24 hr 09/26/17 09/26/17 09/26/17 15:35 15:35 15:35 WBC 5.6 RBC 3.74 Hgb 11.6 Hct 33.3 MCV 89 MCH 31 MCHC 35 H RDW 12.6 L Plt Count 239 Sodium 135 L Potassium 4.7 Chloride 96.2 L Carbon Dioxide 17 L Anion Gap 27 BUN 11 Creatinine 0.4 L Estimated GFR > 60 BUN/Creatinine Ratio 28 Glucose 83 Calcium 9.7 Magnesium 1.60 L Total Bilirubin 0.60 Direct Bilirubin < 0.2 Indirect Bilirubin 0.4 AST 15 ALT 12 Alkaline Phosphatase 57 Total Protein 7.1 Albumin 4.1 Albumin/Globulin Ratio 1.4 Amylase 120 Lipase 147 H TSH Urine Color Urine Turbidity Urine pH Ur Specific [place] Urine Protein Urine Glucose (UA) Urine Ketones Urine Blood Urine Nitrite Urine Bilirubin Urine Urobilinogen Ur Leukocyte Esterase Urine WBC (Auto) Urine RBC (Auto) U Epithel Cells (Auto) Urine Bacteria (Auto) Hyaline Casts Urine Mucus Hepatitis A IgM Ab Hep Bs Antigen Hep B Core IgM Ab Hepatitis C Antibody 09/26/17 09/26/17 09/27/17 15:35 15:35 02:30 WBC RBC Hgb Hct MCV MCH MCHC RDW Plt Count Sodium Potassium Chloride Carbon Dioxide Anion Gap BUN Creatinine Estimated GFR BUN/Creatinine Ratio Glucose Calcium Magnesium Total Bilirubin Direct Bilirubin Indirect Bilirubin AST ALT Alkaline Phosphatase Total Protein Albumin Albumin/Globulin Ratio Amylase Lipase TSH 0.011 L Urine Color Yellow Urine Turbidity Hazy Urine pH 6.0 Ur Specific [place] 1.029 Urine Protein 100 mg/dl Urine Glucose (UA) Neg Urine Ketones 80 Urine Blood Neg Urine Nitrite Neg Urine Bilirubin Neg Urine Urobilinogen 2.0 Ur Leukocyte Esterase Neg Urine WBC (Auto) 5.0 Urine RBC (Auto) 9.0 U Epithel Cells (Auto) 3.0 Urine Bacteria (Auto) 2+ Hyaline Casts 18 Urine Mucus 3+ Hepatitis A IgM Ab Non-reactive Hep Bs Antigen Non-reactive Hep B Core IgM Ab Non-reactive Hepatitis C Antibody Non-reactive 09/27/17 02:30 WBC RBC Hgb Hct MCV MCH MCHC RDW Plt Count Sodium Potassium Chloride Carbon Dioxide Anion Gap BUN Creatinine Estimated GFR BUN/Creatinine Ratio Glucose Calcium Magnesium Total Bilirubin Direct Bilirubin Indirect Bilirubin AST ALT Alkaline Phosphatase Total Protein Albumin Albumin/Globulin Ratio Amylase Lipase TSH Urine Color Urine Turbidity Urine pH Ur Specific [place] Urine Protein Urine Glucose (UA) Urine Ketones 80 Urine Blood Urine Nitrite Urine Bilirubin Urine Urobilinogen Ur Leukocyte Esterase Urine WBC (Auto) Urine RBC (Auto) U Epithel Cells (Auto) Urine Bacteria (Auto) Hyaline Casts Urine Mucus Hepatitis A IgM Ab Hep Bs Antigen Hep B Core IgM Ab Hepatitis C Antibody
[2017-09-27] MEDS ORDERED: VISTARIL IM PRN (09:21)
[2017-09-27] MEDS: PRENATAL VITAMIN PO SCH (09:31)
[2017-09-27] MEDS ORDERED: TRANSDERM-SCOP TD SCH (10:00)
[2017-09-28] MEDS: PHENERGAN PR SCH ×4 (02:00→20:29)
[2017-09-28] MEDS: REGLAN IV SCH ×4 (02:30→20:28)
[2017-09-28] MEDS: LACTATED RINGERS 1,000 ML IV SCH ×3 (02:31→21:02)
--- NOTE | 2017-09-28 08:16 | Progress Note ---
Assessment and Plan HD2 IUP 8 weeks ( pratt IUP with loss of twin gestation ( di/di) Hyperemesis gravidarum still on iv tolerating liquids advance as tolerated US -reports vaginal spotting Subjective - Subjective Date of service: 09/28/17 Principal diagnosis: Hyperemesis gravidarum Interval history: This is a 27 yo at 8 weeks came in for appt for OB. Patient has been seen prior and noted to have twin with one loss. She states that she has lost 40 pounds since beginning of starting out at 225 current weight 189. Mother states that she can not keep food down and unable to eat anything for over 1 week. She has a hx of gastric bypass surgery. She also has a hx of diabets, herpes, sleep apnea, pcos, and hypertension. She denies any vaginal bleeding. Minimal cramping nor urinary sx. Patient reports: new complaints, vaginal bleeding (spotting), other (no vomiting since admit. Nausea only), no loss of fluid, no movement normal, no contractions Objective - Vital Signs Vital Signs: Vital Signs - 12hr 09/27/17 09/28/17 09/28/17 20:55 00:04 05:29 Temperature 99.1 F 98.3 F 98.7 F Pulse Rate 81 74 75 Respiratory 14 12 16 Rate Blood Pressure 116/61 107/53 113/57 [Right] O2 Sat by Pulse 99 99 Oximetry - Exam Breasts: normal Cardiovascular: Regular rate, Normal S1 Lungs: Clear to auscultation, Normal air movement Abdomen: Present: normal appearance, soft, normal bowel sounds. Absent: distention, tenderness, guarding Vulva: both: normal Uterus: Present: normal Extremities: normal Deep Tendon Reflex Grade: Normal +2 - Labs Labs: Abnormal Labs 09/26/17 09/26/17 09/26/17 15:35 15:35 15:35 MCHC 35 H RDW 12.6 L Sodium 135 L Chloride 96.2 L Carbon Dioxide 17 L Creatinine 0.4 L Magnesium 1.60 L Lipase 147 H TSH 09/26/17 15:35 MCHC RDW Sodium Chloride Carbon Dioxide Creatinine Magnesium Lipase TSH 0.011 L Laboratory Results - last 24 hr 09/27/17 09/28/17 14:00 05:00 Urine Ketones Tr 80
[2017-09-28] MEDS: REGLAN PO PRN (08:58)
[2017-09-28] MEDS: PRENATAL VITAMIN PO SCH (10:00)
--- NOTE | 2017-09-28 11:56 | Ultrasound Report ---
OB ultrasound: . Transabdominal imaging demonstrates 2 gestational sacs. Baby a has a gestational sac measuring 36.9 mm with a crown-rump length of 23.4 mm. This is equivalent to a 9 week zero day gestation. There is heart motion of 166 beats per minute. Yolk sac present. Baby B demonstrates a gestational sac of 38 mm. A yolk sac is present. A questionable pole is identified measuring 7.4 mm. No heart motion identified. A 2.3 cm hypoechoic mass is identified in the myometrium. The left ovary measures 5 cm and contains a 15 mm cyst. The right ovary measures 7.2 cm containing a complex 4 cm mass which is partially cystic. No free fluid identified. Impressions: 1. Twin with a viable baby A no confirmation of baby B viability. 2. Large right ovary with cyst. 3. Small uterine fibroid.
--- NOTE | 2017-09-28 17:20 | Event Note ---
Date: 09/28/17 nurse notified me that patient desires to go home as she has appt for tomorrow. Patient still on IV antemitics will recommend staying but offered patient that she may sign AMA.
[2017-09-29] MEDS: PHENERGAN PR SCH ×4 (02:09→21:14)
[2017-09-29] MEDS: REGLAN IV SCH ×4 (02:09→21:14)
[2017-09-29] MEDS: LACTATED RINGERS 1,000 ML IV SCH ×2 (05:13→21:39)
[2017-09-29] MEDS: ZOFRAN ODT PO PRN ×2 (08:17→17:20)
--- NOTE | 2017-09-29 15:29 | Progress Note ---
Assessment and Plan IUP 8 weeks ( pratt IUP with loss of twin gestation ( di/di) Hyperemesis gravidarum still on iv tolerating liquids advance as tolerated encourage eating crackers Subjective - Subjective Date of service: 09/29/17 Principal diagnosis: Hyperemesis gravidarum Interval history: This is a 27 yo at 8 weeks came in for appt for OB. Patient has been seen prior and noted to have twin with one loss. She states that she has lost 40 pounds since beginning of starting out at 225 current weight 189. Mother states that she can not keep food down and unable to eat anything for over 1 week. She has a hx of gastric bypass surgery. She also has a hx of diabets, herpes, sleep apnea, pcos, and hypertension. She denies any vaginal bleeding. Minimal cramping nor urinary sx. Patient reports: new complaints, other (no vomiting since admit. Nausea only), no loss of fluid, no vaginal bleeding (spotting), no movement normal, no contractions Objective - Vital Signs Vital Signs: Vital Signs - 12hr 09/29/17 09/29/17 08:00 12:13 Temperature 99.2 F 97.5 F L Pulse Rate 76 Respiratory 18 20 Rate Blood Pressure 108/54 Blood Pressure 116/62 [Right] O2 Sat by Pulse 98 Oximetry - Exam Breasts: deferred Cardiovascular: Regular rate, Normal S1 Lungs: Clear to auscultation Abdomen: Present: normal appearance, soft, normal bowel sounds. Absent: distention, tenderness, guarding Vulva: both: normal Uterus: Present: normal, firm, fundal height below umbilicus. Absent: bogginess , tenderness - Labs Labs: Abnormal Labs 09/26/17 09/26/17 09/26/17 15:35 15:35 15:35 MCHC 35 H RDW 12.6 L Sodium 135 L Chloride 96.2 L Carbon Dioxide 17 L Creatinine 0.4 L Magnesium 1.60 L Lipase 147 H TSH 09/26/17 15:35 MCHC RDW Sodium Chloride Carbon Dioxide Creatinine Magnesium Lipase TSH 0.011 L Laboratory Results - last 24 hr 09/29/17 02:00 Urine Ketones 80
[2017-09-29] MEDS ORDERED: TYLENOL PO PRN (15:45)
[2017-09-30] MEDS: REGLAN PO PRN ×3 (02:22→14:45)
[2017-09-30] MEDS: ZOFRAN ODT PO PRN ×3 (02:22→17:15)
[2017-09-30] MEDS: REGLAN IV SCH (02:26)
[2017-09-30] MEDS: PHENERGAN PR SCH (02:26)
[2017-09-30] MEDS: LACTATED RINGERS 1,000 ML IV SCH (05:59)
[2017-09-30] MEDS ORDERED: ZOFRAN ODT PO PRN (08:54)
[2017-09-30 19:05] VITALS: BP 112/55
--- NOTE | 2017-09-30 20:30 | Discharge Summary ---
Providers - Providers Date of Admission: 09/26/17 13:48 Date of discharge: 09/30/17 Attending physician: RAJAT LOCK MD 09/26/17 13:48 Consult to Dietitian/Nutrition [CONS] Routine Physician Instructions: Reason For Exam: Reason for Consult: hyper grav Reason for Consult: Malnutrition Primary care physician: RAJAT LOCK MD Hospitalization Reason for admission: other Hospital course: Patient admitted for hyperemesis gravidarum and received antiemetic iv tolerating diet with po. Discharge. f/u in 1 week Condition at discharge: Good Disposition: [id number] TO HOME OR SELFCARE Plan - Discharge Medications Prescriptions: Metoclopramide [Reglan] 10 mg PO TID #30 tab Promethazine [Phenergan TAB] 25 mg PO Q8HR PRN #30 tab PRN Reason: Nausea - Provider Discharge Summary Additional instructions: [] Smoking cessation referral if applicable(refer to patient education folder for contact #) [] Refer to [facility] Booklet Call your doctor immediately for: * Fever > 100.5 * Heavy vaginal bleeding ( >1 pad per hour) * Severe persistent headache * Shortness of breath * Reddened, hot, painful area to leg or breast * Drainage or odor from incision. * Keep incision clean and dry at all times and follow doctor's instructions regarding bathing/showering - Follow up plan Follow up: RAJAT LOCK MD [Primary Care Provider] - 7 Days
== END 2017-09-30 22:41 | disposition home or self-care (01) | DRG 781 ==
LOC: UNDOADMIN 12:53 → 3A 12:53 → OB 13:48
PROVIDERS: ADMIT Obstetrics & Gynecology; ATTEND Obstetrics & Gynecology
DX: O21.0 Mild hyperemesis gravidarum (principal); O10.911 Unspecified pre-existing hypertension complicating pregnancy, first trimester; O24.311 Unspecified pre-existing diabetes mellitus in pregnancy, first trimester; O98.511 Other viral diseases complicating pregnancy, first trimester; O99.511 Diseases of the respiratory system complicating pregnancy, first trimester; G47.30 Sleep apnea, unspecified; O99.211 Obesity complicating pregnancy, first trimester; E66.9 Obesity, unspecified; Z68.27 Body mass index [BMI] 27.0-27.9, adult; Z3A.08 8 weeks gestation of pregnancy; Z98.84 Bariatric surgery status; Z83.3 Family history of diabetes mellitus; Z82.49 Family history of ischemic heart disease and other diseases of the circulatory system; E11.9 Type 2 diabetes mellitus without complications; O26.891 Other specified pregnancy related conditions, first trimester; E28.2 Polycystic ovarian syndrome; B00.9 Herpesviral infection, unspecified
CPT/HCPCS: 36415; 76801; 76802; 76810; 76817; 80048; 80074; 81001; 82010; 82150; 83690; 83735; 84443; 85027; J2765; J3410; J7120; J7121; Q0162

== ENCOUNTER 2017-10-04 02:52 | Emergency (ER) | payer OTHER | END 2017-10-04 02:53 | disposition left against medical advice (07) | LOC: ED 02:52 | DX: R10.9 Unspecified abdominal pain (principal); Z88.1 Allergy status to other antibiotic agents; Z53.21 Procedure and treatment not carried out due to patient leaving prior to being seen by health care provider ==

== ENCOUNTER 2017-10-26 09:49 | Emergency (ER) | payer OTHER, MEDICAID ==
[2017-10-26 10:09] VITALS: BP 121/59
[2017-10-26 11:52] LABS: Basophils % (Auto) 0.5 % (0.0-1.8); Eosinophils % (Auto) 0.7 % (0.0-4.3); Hemoglobin 9.7 gm/dl (10.1-14.3); Lymphocytes # (Auto) 1.9 K/mm3 (1.2-5.4); Lymphocytes % (Auto) 38.4 % (13.4-35.0); Mean Corpuscular HGB Conc 34 % (30-34); Mean Corpuscular Hemoglobin 31 pg (28-32); Mean Corpuscular Volume 92 fl (79-97); Monocytes # (Auto) 0.6 K/mm3 (0.0-0.8); Monocytes % (Auto) 11.7 % (0.0-7.3); Platelet Count 253 K/mm3 (140-440); Red Blood Count 3.15 M/mm3 (3.65-5.03)
[2017-10-26 12:10] LABS: BUN/Creatinine Ratio 15; Blood Urea Nitrogen 6 mg/dL (7-17); Calcium 8.9 mg/dL (8.4-10.2); Hemolysis Index 0
[2017-10-26] MEDS ORDERED: K-DUR PO ONE (12:15)
[2017-10-26] MEDS ORDERED: ZOFRAN ODT PO ONE (12:15)
[2017-10-26] MEDS ORDERED: CEPHULAC PO ONE (12:16)
--- NOTE | 2017-10-26 12:57 | Emergency Department Report ---
Blank Doc - Documentation Documentation: 27-year-old female presents to the hospital approximately 12 weeks and 5 days complaining of constipation and pain at her surgical site. On October 05 patient presents to [facility] with an ovarian torsion and required surgery. She has a vertical scar above the umbilicus and states that she has some persistent irritation and soreness to this area. She denies drainage, fever, warmth, or redness. Patient states this is she's been having intermittent nausea vomiting with hyperemesis and decreased bowel movements. She was last admitted to [facility] a week ago for 3 days due to hyperemesis 3 days she has since improved her by mouth intake and still has not had a normal bowel movement. She states she has not had a normal bowel movement in 1 month's time despite taking multiple [id number] laxatives, prune juice, and increasing fiber intake. Has received an enema during this with relief and is requesting the same today. This is her first . Abdominal exam. Mild soreness below the abdominal scar without erythema, warmth , edema, redness, or drainage. No wound dehiscence. No other abdominal tenderness Mild nausea reported Lactulose, soapsuds enema, and Zofran ordered. 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
--- NOTE | 2017-10-26 13:45 | Emergency Department Report ---
- General Chief Complaint: Wound/Laceration Stated Complaint: ABD PAIN Time Seen by Provider: 10/26/17 11:40 Source: patient Mode of arrival: Ambulatory Limitations: No Limitations - History of Present Illness Initial Comments: This is a 27-year-old female presents with complaints of constipation and pain to the surgical wound. Patient states she is approximately 12 weeks gestation. She had to emergency surgery on October 05 at [facility] for ovarian torsion. Patient states she had to return to [facility] one week after surgery because she felt weak and nauseous with some discomfort to surgical site. She was admitted and rehydrate. They told her the wound was healing appropriately. Patient reports discomfort below surgical site. Patient states it is sore and painful to touch. She is also having nausea and vomiting with constipation. Her bowel movements have been hard balls and painful to expel. She denies drainage, fever, warmth, or redness. She has taken Docusate sodium and MiraLAX with no improvement of bowels. Onset/Timin -: week(s) Location: abdomen Place: home Patient Tetanus UTD: Yes Associated Symptoms: pain Treatments Prior to Arrival: other (MiraLAX and stool softeners) - Related Data Home Medications Medication Instructions Recorded Confirmed Last Taken Ondansetron [Zofran Odt] 4 mg PO PRN PRN 09/14/17 09/27/17 Unknown Previous Rx's Medication Instructions Recorded Last Taken Type Acetaminophen [Tylenol Arthritis] 650 mg PO Q6HR PRN #30 tablet.er 09/14/17 Unknown Rx Doxylamine Succinate/Vit B6 1 each PO QHS PRN #30 tablet. 09/14/17 Unknown Rx [aMrcella Dutta 10-10 mg Tablet] Vit Calc,Iron,Folic 1 each PO QDAY #30 tablet 09/14/17 Unknown Rx [ Vitamins] Metoclopramide [Reglan] 10 mg PO TID #30 tab 09/30/17 Unknown Rx Promethazine [Phenergan TAB] 25 mg PO Q8HR PRN #30 tab 09/30/17 Unknown Rx Allergies Allergy/AdvReac Type Severity Reaction Status Date / Time cephalexin [From Keflex] Allergy Vomiting Verified 10/26/17 10:08 ED Review of Systems ROS: Stated complaint: ABD PAIN Other details as noted in HPI Constitutional: denies: chills, fever Respiratory: denies: cough, shortness of breath, wheezing Cardiovascular: denies: chest pain, palpitations Gastrointestinal: nausea, vomiting. denies: abdominal pain, diarrhea Skin: lesions (pain below surgical incision). denies: rash ED Past Medical Hx - Past Medical History Previous Medical History?: Yes Hx Hypertension: Yes Hx Congestive Heart Failure: No Hx Diabetes: Yes Hx Asthma: No Hx COPD: No Hx HIV: No Additional medical history: hyperlipidemia - Surgical History Past Surgical History?: Yes Additional Surgical History: gastric bypass, ovarian cyst removal - Social History Smoking Status: Never Smoker - Medications Home Medications: Home Medications Medication Instructions Recorded Confirmed Last Taken Type Acetaminophen [Tylenol Arthritis] 650 mg PO Q6HR PRN #30 tablet.er 09/14/1703/05 Unknown Rx Doxylamine Succinate/Vit B6 1 each PO QHS PRN #30 tablet. 09/14/17 09/27/17 Unknown Rx [Diclegis Dr 10-10 mg Tablet] Ondansetron [Zofran Odt] 4 mg PO PRN PRN 09/14/17 09/27/17 Unknown History Vit Calc,Iron,Folic 1 each PO QDAY #30 tablet 09/14/17 09/27/17 Unknown Rx [ Vitamins] Metoclopramide [Reglan] 10 mg PO TID #30 tab 09/30/17 Unknown Rx Promethazine [Phenergan TAB] 25 mg PO Q8HR PRN #30 tab 09/30/17 Unknown Rx ED Physical Exam - General Limitations: No Limitations General appearance: alert, in no apparent distress - Respiratory Respiratory exam: Present: normal lung sounds bilaterally. Absent: respiratory distress - Cardiovascular Cardiovascular Exam: Present: regular rate, normal rhythm. Absent: systolic murmur, diastolic murmur, rubs, gallop - GI/Abdominal GI/Abdominal exam: Present: soft, normal bowel sounds - Neurological Exam Neurological exam: Present: alert, oriented X3 - Psychiatric Psychiatric exam: Present: normal affect, normal mood - Skin Skin exam: Present: warm, dry, normal color, other (6 cm healing surgical wound to left of umbilicus, tenderness below wound, no erythema, drainage, dehiscence , warmth, or swelling). Absent: rash, cyanosis, diaphoretic, erythema, urticaria, vesicles, petechiae, pallor, abrasion, ecchymosis ED Course Vital Signs 10/26/17 10:04 Temperature 98.4 F Pulse Rate 89 Respiratory 16 Rate Blood Pressure 121/59 O2 Sat by Pulse 100 Oximetry ED Medical Decision Making - Lab Data Result diagrams: 10/26/17 11:38 10/26/17 11:38 - Medical Decision Making This is a 27 y.o. female that presents with pain of surgical site and constipation during . Patient examined by me and Dr. Hayes. No distress noted. Vitals stable. Patient given Lactulose, soapsuds enema, and Zofran. Obtained CBC, CMP, & hCG quant. Patient has mild hypokalemia all other labs unremarkable. Patient given Klor-Con for hypokalemia. Instructed to stop miralax and start taking metamucil to increase fiber and increase water intake for constipation. Follow up with [employer]ACHINE OPERATOR and general surgeon. Critical care attestation.: If time is entered above; I have spent that time in minutes in the direct care of this critically ill patient, excluding procedure time. ED Disposition Clinical Impression: Wound healing well on examination, Nausea and vomiting during Constipation Qualifiers: Constipation type: slow transit constipation Qualified Code(s): K59.01 - Slow transit constipation Disposition: - TO HOME OR SELFCARE Is pt being admited?: No Does the pt Need Aspirin: No Condition: Stable Instructions: (ED), Constipation (ED), High Fiber Diet (ED) Additional Instructions: Increase fiber intake with foods and/or metamucil. Increase water intake and drink or eat prunes. Take colace daily to soften stool. Avoid taking laxatives during . Follow up with SPAGHE[employer] MACHINE OPERATOR in 24-72 hours. Referrals: RAJAT LOCK MD [Staff Physician] - 3-5 Days Time of Disposition: 14:25 Print Language: IRISH
== END 2017-10-26 14:40 | disposition home or self-care (01) ==
LOC: ED 09:49
DX: O21.9 Vomiting of pregnancy, unspecified (principal); O26.891 Other specified pregnancy related conditions, first trimester; K59.00 Constipation, unspecified; O16.1 Unspecified maternal hypertension, first trimester; O24.911 Unspecified diabetes mellitus in pregnancy, first trimester; E78.5 Hyperlipidemia, unspecified; Z39.2 Encounter for routine postpartum follow-up; Z3A.12 12 weeks gestation of pregnancy; Z88.8 Allergy status to other drugs, medicaments and biological substances
CPT/HCPCS: 36415; 80048; 84702; 85025; 99283; Q0162

== ENCOUNTER 2017-12-08 19:24 | Emergency (ER) | payer OTHER, MEDICAID ==
[2017-12-08 20:32] LABS: Bacteria,Urine 1+ /HPF (Negative); Bilirubin,Urine NEG (Negative); Blood,Urine NEG (Negative); Color,Urine Yellow (Yellow); Mucus,Urine FEW /HPF; Protein,Urine <15 mg/dL mg/dL (Negative); Urobilinogen,Urine < 2.0 mg/dL (<2.0)
[2017-12-08 20:36] LABS: Basophils % (Auto) 0.2 % (0.0-1.8); Eosinophils % (Auto) 0.4 % (0.0-4.3); Hematocrit 30.1 % (30.3-42.9); Hemoglobin 10.3 gm/dl (10.1-14.3); Lymphocytes % (Auto) 29.5 % (13.4-35.0); Mean Corpuscular HGB Conc 34 % (30-34); Mean Corpuscular Hemoglobin 33 pg (28-32); Mean Corpuscular Volume 97 fl (79-97); Monocytes # (Auto) 0.6 K/mm3 (0.0-0.8); Monocytes % (Auto) 8.1 % (0.0-7.3); Platelet Count 262 K/mm3 (140-440); Red Cell Distribution Width 15.1 % (13.2-15.2)
[2017-12-08 20:54] LABS: Alanine Aminotransferase 9 units/L (7-56); Albumin 3.7 g/dL (3.9-5); BUN/Creatinine Ratio 20; Blood Urea Nitrogen 8 mg/dL (7-17); Hemolysis Index 13
--- NOTE | 2017-12-08 23:19 | Ultrasound Report ---
FINAL REPORT PROCEDURE: Obstetrical ultrasound. TECHNIQUE: Real-time transabdominal sonography of the uterus, placenta, amniotic fluid, adnexa, and fetus was performed with image documentation. Measurements were obtained to determine age/size. M-mode Doppler was used to document heartbeat. CPT 27526 HISTORY: , cramping pain. COMPARISON: Obstetrical ultrasound 09/05/2017. FINDINGS: There is an intrauterine fetus in cephalic presentation. Cardiac activity is documented at 155 beats per minute. The amniotic fluid volume appears normal. The placenta is anterior in location, grade 0. The measured parameters are as follows: Biparietal diameter 4.2 centimeters, head circumference 15.3 centimeters, abdominal circumference 13.6 centimeters, femur length 2.8 centimeters. The calculated menstrual age is 18 weeks 4 days. The estimated date of confinement is 05/07/2018. The estimated weight is 254 grams. The cervix is closed and measures 3.2 centimeters in length. IMPRESSION: Viable intrauterine fetus with a menstrual age of 18 weeks 4 days.
--- NOTE | 2017-12-09 00:03 | Emergency Department Report ---
ED General Adult HPI - General Chief complaint: Abdominal Pain Stated complaint: ABD PAIN; 18.6WKS GEST Time Seen by Provider: 12/08/17 23:47 Source: patient, RN notes reviewed, old records reviewed Mode of arrival: Ambulatory Limitations: No Limitations - History of Present Illness Initial comments: This is a 27-year-old female whom I have evaluated in the past Her past history is significant for gastric bypass, twin gestation with subsequent loss, right-sided ovarian torsion with subsequent detorsion. Also has a history of constipation. The patient presents to the ER with a complaint of nontraumatic left flank pain. This is intermittent, now resolved, and does not have exacerbating or relieving factors. The patient indicates it felt similar to her episode of ovarian discomfort/torsion, although it is less severe. She endorses urinary frequency, but no dysuria. She currently denies headache, neck pain, chest pain, shortness of breath, syncope. Her DISABILITY [facility]OC[facility] physician is premier She also follows with a high risk group. -: Gradual Location: abdomen, pelvis Consistency: now resolved Improves with: none Worsens with: none Associated Symptoms: denies: confusion, chest pain, cough, diaphoresis, fever/ chills, headaches, loss of appetite, malaise, nausea/vomiting, rash, seizure, shortness of breath, syncope, weakness - Related Data Home Medications Medication Instructions Recorded Confirmed Last Taken Ondansetron [Zofran Odt] 4 mg PO PRN PRN 09/14/17 09/27/17 Unknown Previous Rx's Medication Instructions Recorded Last Taken Type Acetaminophen [Tylenol Arthritis] 650 mg PO Q6HR PRN #30 tablet.er 09/14/17 Unknown Rx Doxylamine Succinate/Vit B6 1 each PO QHS PRN #30 tablet. 09/14/17 Unknown Rx [Marcella Dutta 10-10 mg Tablet] Vit Calc,Iron,Folic 1 each PO QDAY #30 tablet 09/14/17 Unknown Rx [ Vitamins] Metoclopramide [Reglan] 10 mg PO TID #30 tab 09/30/17 Unknown Rx Promethazine [Phenergan TAB] 25 mg PO Q8HR PRN #30 tab 09/30/17 Unknown Rx Nitrofurantoin Wolfe/M-Cryst 100 mg PO Q12HR #14 capsule 12/09/17 Unknown Rx [Macrobid CAP] Allergies Allergy/AdvReac Type Severity Reaction Status Date / Time cephalexin [From Keflex] Allergy Vomiting Verified 10/26/17 10:08 ED Review of Systems ROS: Stated complaint: ABD PAIN; 18.6WKS GEST Other details as noted in HPI Gastrointestinal: abdominal pain. denies: nausea, vomiting Genitourinary: frequency Musculoskeletal: denies: back pain ED Past Medical Hx - Past Medical History Hx Hypertension: Yes Hx Congestive Heart Failure: No Hx Diabetes: Yes Hx Asthma: No Hx COPD: No Hx HIV: No Additional medical history: hyperlipidemia - Surgical History Additional Surgical History: gastric bypass, ovarian cyst removal - Social History Smoking Status: Never Smoker Substance Use Type: None - Medications Home Medications: Home Medications Medication Instructions Recorded Confirmed Last Taken Type Acetaminophen [Tylenol Arthritis] 650 mg PO Q6HR PRN #30 tablet.er 09/14/1703/05 Unknown Rx Doxylamine Succinate/Vit B6 1 each PO QHS PRN #30 tablet. 09/14/17 09/27/17 Unknown Rx [Marcella Dutta 10-10 mg Tablet] Ondansetron [Zofran Odt] 4 mg PO PRN PRN 09/14/17 09/27/17 Unknown History Vit Calc,Iron,Folic 1 each PO QDAY #30 tablet 09/14/17 09/27/17 Unknown Rx [ Vitamins] Metoclopramide [Reglan] 10 mg PO TID #30 tab 09/30/17 Unknown Rx Promethazine [Phenergan TAB] 25 mg PO Q8HR PRN #30 tab 09/30/17 Unknown Rx Nitrofurantoin Wolfe/M-Cryst 100 mg PO Q12HR #14 capsule 12/09/17 Unknown Rx [Macrobid CAP] ED Physical Exam - General Limitations: No Limitations General appearance: alert, in no apparent distress - Head Head exam: Present: atraumatic, normocephalic - Eye Eye exam: Present: normal appearance, EOMI. Absent: nystagmus - ENT ENT exam: Present: normal exam, normal orophraynx, mucous membranes moist, normal external ear exam - Neck Neck exam: Present: normal inspection, full ROM. Absent: tenderness, meningismus - Respiratory Respiratory exam: Present: normal lung sounds bilaterally. Absent: respiratory distress - Cardiovascular Cardiovascular Exam: Present: regular rate, normal rhythm, normal heart sounds. Absent: bradycardia, tachycardia, irregular rhythm, systolic murmur, diastolic murmur, rubs, gallop - GI/Abdominal GI/Abdominal exam: Present: soft. Absent: distended, tenderness, guarding, rebound, rigid, pulsatile mass - External exam: Present: normal external exam Speculum exam: Present: normal speculum exam. Absent: vaginal bleeding Bi-manual exam: Present: normal bi-manual exam, other (chaperoned by nurse lupe venegas). Absent: cervical motion tendernes, adnexal tenderness, adnexal mass, uterine enlargement, uterine tenderness - Extremities Exam Extremities exam: Present: normal inspection, full ROM, normal capillary refill , other (2+ pulses noted in the bilateral upper, lower extremities. Compartments soft. No long bony tenderness. The pelvis is stable.). Absent: tenderness, pedal edema, joint swelling, calf tenderness - Back Exam Back exam: Present: normal inspection, full ROM. Absent: tenderness, CVA tenderness (R), paraspinal tenderness, vertebral tenderness - Neurological Exam Neurological exam: Present: alert, oriented X3, CN II-XII intact, normal gait, other (Extraocular movements intact. Tongue midline. No facial droop. Facial sensation intact to light touch in the V1, V2, V3 distribution bilaterally. 5 and 5 strength in 4 extremities.. Sensation is intact to light touch in 4 extremities.). Absent: motor sensory deficit - Psychiatric Psychiatric exam: Present: normal affect, normal mood - Skin Skin exam: Present: warm, dry, intact, normal color. Absent: rash ED Course Vital Signs 12/08/17 12/08/17 19:30 23:55 Temperature 98.9 F 98.3 F Pulse Rate 75 71 Respiratory 16 16 Rate Blood Pressure 115/55 Blood Pressure 123/68 [Left] O2 Sat by Pulse 100 98 Oximetry - Reevaluation(s) Reevaluation #1: 12/09/17 01:54 Gynecologic ultrasound negative for left-sided ovarian torsion. Right ovary not visualized, however patient has no right-sided ovarian pain. ED Medical Decision Making - Lab Data Result diagrams: 12/08/17 20:14 12/08/17 20:14 Vital Signs 12/08/17 12/08/17 19:30 23:55 Temperature 98.9 F 98.3 F Pulse Rate 75 71 Respiratory 16 16 Rate Blood Pressure 115/55 Blood Pressure 123/68 [Left] O2 Sat by Pulse 100 98 Oximetry Lab Results 12/08/17 12/08/17 12/08/17 Range/Units 19:48 20:14 20:14 WBC 6.9 (4.5-11.0) K/mm3 RBC 3.10 L (3.65-5.03) M/mm3 Hgb 10.3 (10.1-14.3) gm/dl Hct 30.1 L (30.3-42.9) % MCV 97 (79-97) fl MCH 33 H (28-32) pg MCHC 34 (30-34) % RDW 15.1 (13.2-15.2) % Plt Count 262 (140-440) K/mm3 Lymph % (Auto) 29.5 (13.4-35.0) % Wolfe % (Auto) 8.1 H (0.0-7.3) % Eos % (Auto) 0.4 (0.0-4.3) % Baso % (Auto) 0.2 (0.0-1.8) % Lymph # 2.0 (1.2-5.4) K/mm3 Wolfe # 0.6 (0.0-0.8) K/mm3 Eos # 0.0 (0.0-0.4) K/mm3 Baso # 0.0 (0.0-0.1) K/mm3 Seg Neutrophils % 61.8 (40.0-70.0) % Seg Neutrophils # 4.3 (1.8-7.7) K/mm3 Sodium (137-145) mmol/L Potassium (3.6-5.0) mmol/L Chloride (98-107) mmol/L Carbon Dioxide (22-30) mmol/L Anion Gap mmol/L BUN (7-17) mg/dL Creatinine (0.7-1.2) mg/dL Estimated GFR ml/min BUN/Creatinine Ratio % Glucose (65-100) mg/dL Calcium (8.4-10.2) mg/dL Total Bilirubin (0.1-1.2) mg/dL AST (5-40) units/L ALT (7-56) units/L Alkaline Phosphatase (35-129) units/L Total Protein (6.3-8.2) g/dL Albumin (3.9-5) g/dL Albumin/Globulin Ratio % HCG, Qual Positive (Negative) Urine Color Yellow (Yellow) Urine Turbidity Slightly-cloudy (Clear) Urine pH 5.0 (5.0-7.0) Ur Specific [place] 1.017 (1.003-1.030) Urine Protein <15 mg/dl (Negative) mg/dL Urine Glucose (UA) Neg (Negative) mg/dL Urine Ketones Neg (Negative) mg/dL Urine Blood Neg (Negative) Urine Nitrite Neg (Negative) Urine Bilirubin Neg (Negative) Urine Urobilinogen < 2.0 (<2.0) mg/dL Ur Leukocyte Esterase Neg (Negative) Urine WBC (Auto) 2.0 (0.0-6.0) /HPF Urine RBC (Auto) 1.0 (0.0-6.0) /HPF U Epithel Cells (Auto) 5.0 (0-13.0) /HPF Urine Bacteria (Auto) 1+ (Negative) /HPF Urine Mucus Few /HPF 12/08/17 Range/Units 20:14 WBC (4.5-11.0) K/mm3 RBC (3.65-5.03) M/mm3 Hgb (10.1-14.3) gm/dl Hct (30.3-42.9) % MCV (79-97) fl MCH (28-32) pg MCHC (30-34) % RDW (13.2-15.2) % Plt Count (140-440) K/mm3 Lymph % (Auto) (13.4-35.0) % Wolfe % (Auto) (0.0-7.3) % Eos % (Auto) (0.0-4.3) % Baso % (Auto) (0.0-1.8) % Lymph # (1.2-5.4) K/mm3 Wolfe # (0.0-0.8) K/mm3 Eos # (0.0-0.4) K/mm3 Baso # (0.0-0.1) K/mm3 Seg Neutrophils % (40.0-70.0) % Seg Neutrophils # (1.8-7.7) K/mm3 Sodium 135 L (137-145) mmol/L Potassium 4.4 (3.6-5.0) mmol/L Chloride 103.4 (98-107) mmol/L Carbon Dioxide 22 (22-30) mmol/L Anion Gap 14 mmol/L BUN 8 (7-17) mg/dL Creatinine 0.4 L (0.7-1.2) mg/dL Estimated GFR > 60 ml/min BUN/Creatinine Ratio 20 % Glucose 81 (65-100) mg/dL Calcium 9.0 (8.4-10.2) mg/dL Total Bilirubin 0.20 (0.1-1.2) mg/dL AST 14 (5-40) units/L ALT 9 (7-56) units/L Alkaline Phosphatase 48 (35-129) units/L Total Protein 7.0 (6.3-8.2) g/dL Albumin 3.7 L (3.9-5) g/dL Albumin/Globulin Ratio 1.1 % HCG, Qual (Negative) Urine Color (Yellow) Urine Turbidity (Clear) Urine pH (5.0-7.0) Ur Specific [place] (1.003-1.030) Urine Protein (Negative) mg/dL Urine Glucose (UA) (Negative) mg/dL Urine Ketones (Negative) mg/dL Urine Blood (Negative) Urine Nitrite (Negative) Urine Bilirubin (Negative) Urine Urobilinogen (<2.0) mg/dL Ur Leukocyte Esterase (Negative) Urine WBC (Auto) (0.0-6.0) /HPF Urine RBC (Auto) (0.0-6.0) /HPF U Epithel Cells (Auto) (0-13.0) /HPF Urine Bacteria (Auto) (Negative) /HPF Urine Mucus /HPF - Radiology Data Radiology results: report reviewed, image reviewed Transabdominal obstetrics ultrasound is unremarkable, demonstrates a viable fetus with an age of 18 weeks and 4 days. Transvaginal ultrasound with Doppler interrogation demonstrates no evidence of ovarian torsion - Medical Decision Making Differential diagnosis, including not limited to: Ovarian cyst, ovarian torsion , urinary frequency secondary to physiology of , constipation Assessment and plan: 27-year-old female with resolved abdominal pain she is afebrile with reassuring vital signs, clinically well-appearing and in no distress. Her abdomen is nontender, adnexa is nontender, and her ultrasounds are unremarkable. She denies dysuria and urinalysis suggests 1+ bacteria, most likely suggestive of bacteriuria of . She is defecating normally by her verbal report. On multiple examinations/reassessments in the ER, she is in no distress, and noted to be playing on a cellular phone. 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 The patient declined pain medication on my evaluation. Critical care attestation.: If time is entered above; I have spent that time in minutes in the direct care of this critically ill patient, excluding procedure time. ED Disposition Clinical Impression: , Urinary frequency, History of abdominal pain Disposition: - TO HOME OR SELFCARE Is pt being admited?: No Does the pt Need Aspirin: No Condition: Stable Instructions: Abdominal Pain (ED) Additional Instructions: Take the medication as directed. Take acetaminophen [id number] as needed for pain. Return to the ER right away with new pain, worsened pain, migration of pain, projectile vomiting, change in mental status, confusion, inability to tolerate liquid feeds. Follow-up with her [facility] physician within the next 7- 10 days. Prescriptions: Nitrofurantoin Wolfe/M-Cryst [Macrobid CAP] 100 mg PO Q12HR #14 capsule Referrals: [facility] [Provider Group] - 3-5 Days
[2017-12-09 00:41] VITALS: BP 123/68
--- NOTE | 2017-12-09 01:51 | Ultrasound Report ---
FINAL REPORT EXAM: US PELVIS DUPLEX DOPPLER COMP HISTORY: pelvic pain TECHNIQUE: Real-time sonography was performed of the adnexa transabdominally and endovaginally. Images are submitted for interpretation. PRIORS: None. FINDINGS: The right adnexa was scanned. The right ovary was not seen. The left ovary appears normal measuring 3.5 x 2.4 x 3.2 cm. Color Doppler evaluation shows flow in the left ovary. There is no free pelvic fluid. IMPRESSION: Normal left ovary without evidence of torsion The right ovary was not seen
== END 2017-12-09 02:01 | disposition home or self-care (01) ==
LOC: ED 19:24
DX: O23.42 Unspecified infection of urinary tract in pregnancy, second trimester (principal); R35.0 Frequency of micturition; O16.2 Unspecified maternal hypertension, second trimester; O24.912 Unspecified diabetes mellitus in pregnancy, second trimester; O34.82 Maternal care for other abnormalities of pelvic organs, second trimester; Z3A.18 18 weeks gestation of pregnancy; Z88.1 Allergy status to other antibiotic agents
CPT/HCPCS: 36415; 76805; 80053; 81001; 84703; 85025; 93975; 99284

== ENCOUNTER 2020-08-25 14:16 | Outpatient (CLI) | payer OTHER | END 2020-08-25 17:31 | disposition home or self-care (01) | LOC: LAB 14:16 → APU 17:17 → LAB 17:31 | PROVIDERS: ATTEND Obstetrics & Gynecology | DX: O26.893 Other specified pregnancy related conditions, third trimester (principal); Z3A.28 28 weeks gestation of pregnancy; Z67.21 Type B blood, Rh negative | CPT/HCPCS: 86850; 86900; 86901; 96372; J2790 ==

== ENCOUNTER 2020-08-29 17:37 | Outpatient (CLI) | payer OTHER ==
[2020-08-29 18:50] LABS: Bacteria,Urine 2+ /HPF (Negative); Bilirubin,Urine NEG (Negative); Blood,Urine NEG (Negative); Color,Urine Yellow (Yellow); Mucus,Urine 3+ /HPF
[2020-08-29] MEDS ORDERED: LACTATED RINGERS 500 ML IV ONE (19:35)
[2020-08-29 19:46] VITALS: BP 125/58
[2020-08-29] MEDS ORDERED: LACTATED RINGERS 1,000 ML IV ONE (21:13)
== END 2020-08-29 21:19 | disposition home or self-care (01) ==
LOC: TRG 17:37 → APU 17:38 → TRG 21:19
PROVIDERS: ATTEND Obstetrics & Gynecology
DX: O47.03 False labor before 37 completed weeks of gestation, third trimester (principal); O24.813 Other pre-existing diabetes mellitus in pregnancy, third trimester; O10.913 Unspecified pre-existing hypertension complicating pregnancy, third trimester; Z3A.29 29 weeks gestation of pregnancy
CPT/HCPCS: 59025; 81001; 96360; 96361; J7120

== ENCOUNTER 2020-10-06 14:58 | Outpatient (CLI) | payer OTHER ==
[2020-10-06 15:28] VITALS: BP 112/63
[2020-10-06 16:13] LABS: Bacteria,Urine 1+ /HPF (Negative); Bilirubin,Urine NEG (Negative); Blood,Urine NEG (Negative); Color,Urine Straw (Yellow); Protein,Urine <15 mg/dL mg/dL (Negative); Urobilinogen,Urine < 2.0 mg/dL (<2.0)
[2020-10-06] MEDS ORDERED: LACTATED RINGERS 1,000 ML IV ONE (16:23)
== END 2020-10-06 18:27 | disposition home or self-care (01) ==
LOC: TRG 14:58 → APU 14:59 → TRG 18:27
PROVIDERS: ATTEND Obstetrics & Gynecology
DX: O26.893 Other specified pregnancy related conditions, third trimester (principal); R10.2 Pelvic and perineal pain; M54.9 Dorsalgia, unspecified; O10.913 Unspecified pre-existing hypertension complicating pregnancy, third trimester; O24.813 Other pre-existing diabetes mellitus in pregnancy, third trimester; Z3A.34 34 weeks gestation of pregnancy
CPT/HCPCS: 59025; 81001; 96360

== ENCOUNTER 2020-10-22 17:06 | Outpatient (CLI) | payer OTHER ==
[2020-10-22 18:14] VITALS: BP 115/64
[2020-10-22] MEDS ORDERED: LACTATED RINGERS 1,000 ML IV ONE (18:59)
== END 2020-10-22 23:33 | disposition home or self-care (01) ==
LOC: TRG 17:06 → APU 17:08 → TRG 23:33
PROVIDERS: ATTEND Obstetrics & Gynecology
DX: O62.9 Abnormality of forces of labor, unspecified (principal); R10.9 Unspecified abdominal pain; Z3A.37 37 weeks gestation of pregnancy
CPT/HCPCS: 59025; 96360; J7120; Q0177

== ENCOUNTER 2020-11-02 08:56 | Inpatient (IN) | payer OTHER ==
--- NOTE | 2020-11-02 10:26 | History and Physical Report ---
History of Present Illness Date of examination: 11/02/20 Chief complaint: scheduled induction of labor History of present illness: Pt is a 30 year old -[place] female JOSÉ 11/12/2020 at 38w5d presents for induction of labor secondary to chronic hypertension. She denies vaginal bleeding or leakage of fluid. She does have irregular contractions. She has had care at [facility] with comanagement at [facility] secondary to chronic hypertension, genital herpes without lesion or prodrome, h/o labor and delivery at 36 wks, migraines s/p Neurology referral and Fioricet, Obesity, Rh negative s/p Rhogam, trichomonas treated with negative test of cure. She is GBS positive. 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 Family/Genetic History: diabetes, hypertension Social history: no significant social history - Obstetrical History Expected Date of Delivery: 11/12/20 Actual Gestation: 38 Week(s) 5 Day(s) : 2 Para: 1 Hx # Term Pregnancies: 0 Number of Pregnancies: 1 Spontaneous Abortions: 0 Induced : 0 Number of Living Children: 1 Medications and Allergies Allergies Allergy/AdvReac Type Severity Reaction Status Date / Time cephalexin [From Keflex] Allergy Severe Shortness Verified 11/02/20 09:44 of Breath Home Medications Medication Instructions Recorded Confirmed Last Taken Type Vit Calc,Iron,Folic 1 each PO QDAY #30 tablet 09/14/17 11/02/20 1 Day Ago Rx [ Vitamins] ~11/01/20 1 tab Active Meds: Active Medications Carboprost Tromethamine (Carboprost Tromethamine 250 Mcg/1 Ml Inj) 250 mcg IM ONCE PRN PRN Reason: Uterine Bleeding Ephedrine Sulfate (Ephedrine Sulfate 50 Mg/1 Ml Inj) 10 mg IV Q2M PRN PRN Reason: Hypotension Oxytocin/Sodium Chloride (Pitocin/Ns 30 Unit/500ml) 30 units in 500 mls @ 2 mls/hr IV TITR HALEY; Protocol Lactated Ringer's (Lactated Ringers) 1,000 mls @ 125 mls/hr IV DIRECT HALEY Oxytocin/Sodium Chloride (Pitocin/Ns 30 Unit/500ml) 30 units in 500 mls @ 40 mls/hr IV TITR HALEY; Protocol Loperamide HCl (Loperamide 2 Mg Cap) 2 mg PO ONCE PRN PRN Reason: give with Hemabate Methylergonovine Maleate (Methylergonovine Maleate 0.2 Mg/Ml Vial) 0.2 mg IM ONCE PRN PRN Reason: Uterine Bleeding Mineral Oil (Mineral Oil 30 Ml Oral Liqd) 30 ml PO QHS PRN PRN Reason: Constipation Misoprostol (Misoprostol 200 Mcg Tab) 800 mcg AZ ONCE PRN PRN Reason: Uterine Bleeding Oxytocin (Oxytocin 10 Unit/1 Ml Inj) 10 unit IM ONCE PRN PRN Reason: Uterine Bleeding Terbutaline Sulfate (Terbutaline 1 Mg/1 Ml Inj) 0.25 mg SUB-Q ONCE PRN PRN Reason: Hyperstimulation/Hypertonicity Review of Systems All systems: negative - Vital Signs Vital signs: Vital Signs Pulse BP Pulse Ox 106 H 130/70 91 11/02/20 09:40 11/02/20 09:40 11/02/20 09:40 Temp Pulse Resp BP Pulse Ox 99.2 F 95 H 130/70 100 11/02/20 09:48 11/02/20 10:20 11/02/20 09:40 11/02/20 10:20 - Physical Exam Breasts: Positive: deferred Abdomen: Positive: soft (gravid,obesity ) Uterus: Positive: enlarged (gravid ) Extremities: Positive: normal - Obstetrical FHR: category 2 Uterine Contraction Monitor Mode: External Cervical Dilatation: 2.5 (per RN ) Uterine Contraction Pattern: Irregular Uterine Tone Measurement Phase: Resting Uterine Contraction Intensity: Moderate Results Result Diagrams: 11/02/20 10:50 All other labs normal. Assessment and Plan A: IUP at 38w5d Chronic hypertension Genital herpes without lesion or prodrome H/o labor and delivery at 36 wks Migraines s/p Neurology referral and Fioricet Obesity Rh negative s/p Rhogam Trichomonas treated with negative test of cure GBS positive P: Admit to labor and delivery Pitocin induction Closely monitor maternal and status
[2020-11-02] MEDS ORDERED: MINERAL OIL 30 ML ORAL LIQD PO PRN (11:00)
[2020-11-02] MEDS ORDERED: ACETAMINOPHEN 325 MG TAB PO PRN (11:00)
[2020-11-02] MEDS ORDERED: BUTORPHANOL 2 MG/1 ML INJ IV PRN (11:00)
[2020-11-02] MEDS ORDERED: CARBOPROST TROMETHAMINE 250 MCG/1 ML INJ IM PRN (11:00)
[2020-11-02] MEDS ORDERED: OXYTOCIN DRIP 30 UNITS/500 ML BAG IV SCH ×2 (11:00)
[2020-11-02] MEDS ORDERED: NALOXONE 0.4 MG/1 ML INJ IV PRN (11:00)
[2020-11-02] MEDS ORDERED: METHYLERGONOVINE MALEATE 0.2 MG/ML VIAL IM PRN (11:00)
[2020-11-02] MEDS ORDERED: miSOPROStol 200 MCG TAB PR PRN (11:00)
[2020-11-02] MEDS ORDERED: LIDOCAINE (2%) 20 MG/1 ML VIAL 20 ML MDV INFILTRATI SCH (11:00)
[2020-11-02] MEDS ORDERED: ePHEDrine SULFATE 50 MG/1 ML INJ IV PRN ×2 (11:00→15:57)
[2020-11-02] MEDS ORDERED: LOPERAMIDE 2 MG CAP PO PRN (11:00)
[2020-11-02] MEDS ORDERED: fentaNYL 100 MCG/2 ML INJ IV PRN (11:00)
[2020-11-02] MEDS: LACTATED RINGERS 1,000 ML IV SCH ×3 (11:27→16:21)
[2020-11-02] MEDS ORDERED: OXYTOCIN 10 UNIT/1 ML INJ IM PRN (11:30)
[2020-11-02] MEDS ORDERED: AMPICILLIN/NS 2 GM/100 ML 2 GM/100 ML BAG IV SCH (11:30)
[2020-11-02] MEDS ORDERED: TERBUTALINE 1 MG/1 ML INJ SUB-Q PRN (11:30)
[2020-11-02] MEDS ORDERED: ONDANSETRON 4 MG/2 ML INJ IV PRN ×2 (11:30→15:57)
[2020-11-02 12:24] LABS: Hematocrit 29.7 % (30.3-42.9); Hemoglobin 9.9 gm/dl (10.1-14.3); Mean Corpuscular HGB Conc 33 % (30-34); Mean Corpuscular Volume 88 fl (79-97); Platelet Count 295 K/mm3 (140-440); Red Cell Distribution Width 16.7 % (13.2-15.2)
[2020-11-02] MEDS: AMPICILLIN/NS 1 GM/50 ML 1 GM/50 ML BAG IV SCH ×2 (15:54→20:33)
[2020-11-02] MEDS ORDERED: NalbUPHINE 10 MG/1 ML INJ IV PRN (15:57)
[2020-11-02] MEDS ORDERED: diphenhydrAMINE 50 MG/ML VIAL IV PRN (15:57)
[2020-11-02] MEDS ORDERED: NALOXONE 2 MG/2 ML INJ IV PRN (15:57)
[2020-11-02] MEDS ORDERED: LACTATED RINGERS 250 ML IV SOLN IV ONE (15:57)
--- NOTE | 2020-11-02 15:58 | Anesthesia Consultation ---
Anesthesia Consult and Med Hx Date of service: 11/02/20 - Airway Anesthetic Teeth Evaluation: Good ROM Head & Neck: Adequate Mental/Hyoid Distance: Adequate Mallampati Class: Class II Intubation Access Assessment: Probably Good - Pulmonary Exam CTA: Yes - Cardiac Exam Cardiac Exam: RRR - Pre-Operative Health Status ASA Pre-Surgery Classification: ASA2 Proposed Anesthetic Plan: Epidural - Pulmonary Hx Smoking: No Hx Asthma: No COPD: No Hx Pneumonia: No Hx Sleep Apnea: No - Cardiovascular System Hx Hypertension: Yes Hx Heart Attack/AMI: No Hx Angina: No - Central Nervous System Hx Seizures: No Hx Psychiatric Problems: No - Gastrointestinal Hx Gastroesophageal Reflux Disease: No - Endocrine Hx Renal Disease: No Hx End Stage Renal Disease: No Hx Liver Disease: No Hx Insulin Dependent Diabetes: No Hx Non-Insulin Dependent Diabetes: Yes Hx Hypothyroidism: No Hx Hyperthyroidism: No - Hematic Hx Anemia: Yes Hx Sickle Cell Disease: No - Other Systems Hx Alcohol Use: No
--- NOTE | 2020-11-02 15:59 | Progress Note ---
Labor Epidural - Labor Epidural Start Time: 15:35 Stop Time: 15:52 Performed by:: LINDA CHENG ([facility]) Procedure: Patient is requesting epidural for labor and pain. H&P, labs were reviewed. Patient IDed, H&P reviewed, all questions and concerns were answered, and consent was signed. Timeout was performed at bedside. Patient in sitting position. Sterile prep and drape was performed. 3ml of 1% lidocaine skin wheal at L[3]- L [4]. 18-gauge Tuohy epidural needle was advanced to loss of resistance with air technique 9cm. Negative CSF negative blood. Epidural catheter advanced to [15] centimeters. [negative] Aspiration [negative] test dose. Sterile dressing applied. Patient tolerated procedure.
[2020-11-02] MEDS ORDERED: fentaNYL-BUPIV 2 MCG/ML-0.125% 200 MCG/100 ML BAG EPIDURAL SCH (17:00)
[2020-11-03] MEDS ORDERED: FAMOTIDINE 20 MG/2 ML INJ IV ONE (00:57)
[2020-11-03] MEDS ORDERED: GENTAMICIN 0 MG in SODIUM CHLORIDE 0.9% 100 ML IV ONE (00:57)
[2020-11-03] MEDS ORDERED: BICITRA ORAL LIQD 30ML PO ONE (00:57)
[2020-11-03] MEDS ORDERED: METOCLOPRAMIDE 10 MG/2 ML INJ IV ONE (00:57)
[2020-11-03] MEDS ORDERED: OXYTOCIN DRIP 30 UNITS/500 ML BAG IV SCH ×2 (01:00→04:21)
[2020-11-03] MEDS ORDERED: LACTATED RINGERS 1,000 ML IV SCH (01:00)
[2020-11-03] MEDS ORDERED: LIDOCAINE 2%/EPINEPHRINE 1:200,000 VIAL (20 ML) INFILTRATI ONE ×2 (01:07→02:26)
[2020-11-03] MEDS ORDERED: GENTAMICIN/NS 120MG/100ML 120 MG/100 ML BAG IV ONE (01:15)
[2020-11-03] MEDS ORDERED: SODIUM CHLORIDE 0.9% IRR 1,500 ML BOTTLE IR ONE (01:51)
[2020-11-03] MEDS ORDERED: WATER FOR IRRIG STERILE 1,500 ML BOTTLE IR ONE (01:51)
[2020-11-03] MEDS ORDERED: ONDANSETRON 4 MG/2 ML INJ ONE (02:00)
[2020-11-03] MEDS ORDERED: KETOROLAC 30 MG/1 ML INJ ONE (02:00)
[2020-11-03] MEDS ORDERED: ePHEDrine SULFATE 50 MG/1 ML INJ ONE (02:00)
[2020-11-03] MEDS ORDERED: OXYTOCIN 10 UNIT/1 ML INJ ONE (02:15)
[2020-11-03] MEDS ORDERED: LACTATED RINGERS 1,000 ML ONE (02:50)
--- NOTE | 2020-11-03 03:01 | Procedure Note ---
OB Delivery Note - Delivery Date of Delivery: 11/03/20 Surgeon: HANH KHOURY Estimated blood loss: other (1034 mL by QBL) - Section Preop diagnosis: nonreassuring FHR tracing Postop diagnosis: same section procedure: section, primary low transverse Disposition: PACU Complications: uterine atony Narrative: Please see operative report - A at 1 minute: 6 at 5 minutes: 8 Infant Gender: Male (3370g (7lb 7oz) @ 0211 am)
--- NOTE | 2020-11-03 03:07 | Operative Report ---
Operative Report Operative Report: Date of procedure: November 03, 2020 Preoperative diagnosis: 1) IUP at 38w5d 2) Chronic Hypertension 3) In tolerance to Labor- repetitive late decelerations remote from delivery Postoperative diagnosis: Same Procedure: Primary low transverse section Surgeon: Pauline Carlson M.D. Anesthesia: Regional Findings: 1) Viable male , Apgars 6 and 8, weight 3370 g, (7 lb [7 oz) in cephalic presentation. Occiput Posterior. Meconium stained amniotic fluid. 2) Normal-appearing uterus ovaries and tubes Estimated blood loss: 1034 mL by QBL IV fluids: 1500 mL Urine output: 200 mL, clear at the end of the procedure Drains: Saab to gravity Specimens: Placenta to pathology Complications:None. Counts correct x 3 Disposition: Stable to PACU Indication for procedure: Pt is a 30 year old at 38w5d with chronic hypertension who progressed to 4 cm but began having repetitive late decelerations with each contraction. The decision was made to proceed to section. Operation in detail: After the risks, benefits, alternatives and complications were explained to the patient she gave informed consent for the procedure. She was subsequently taken to the operating room where regional anesthesia was noted to be adequate. She was placed in the dorsal supine position with leftward tilt and prepped and draped in a normal sterile fashion. heart tones were noted prior to incision. A timeout was performed. A Pfannenstiel skin incision was made with the knife and carried down to the layer of the fascia with the Bovie. The fascia was incised in the midline and the fascial incision was extended bilaterally with the Bovie. The fascial incision was then stretched. The rectus muscles were then in the midline. The peritoneum was then entered bluntly. The peritoneal incision was extended with good visualization of the bladder. The peritoneal incision was then stretched. An Vaughn retractor was placed. The bladder blade was then placed. The vesicouterine peritoneum was grasped with smooth pick ups and incised with Metzenbaum scissors. A bladder flap was then created digitally and the bladder blade was replaced. A transverse incision was made in the lower uterine segment with a knife and extended bilaterally with the bandage scissors. Amniotomy was performed with egress of meconium stained amniotic fluid. head delivered with ease, followed by shoulders and body. bulb suctioned at delivery. Cord clamped and cut. handed to NICU staff in attendance. Cord blood was collected. The placenta was then delivered manually. Uterine atony was noted. Additional pitocin was added to the IV fluid with improvement in uterine tone. The uterus was then exteriorized and cleared of all clots and debris. The hysterotomy was then reapproximated with 0 Monocryl in a running locked fashion. A second layer of the same suture was used in imbricating fashion. The hysterotomy was inspected and hemostasis was noted. The gutters were irrigated and cleared of all clots and debris. The uterus was placed back into the peritoneal cavity. The hysterotomy was again inspected and noted to be hemostatic. Surgicel was placed over the hysterotomy. The Vaughn retractor was removed. The peritoneum was reapproximated with 2-0 Vicryl in a running fashion incorporating the rectus muscles. Surgicel was placed over the rectus muscles. The fascia was reapproximated with 0 Vicryl in a running fashion. The subcutaneous tissue was reapproximated with 3-0 Vicryl in a running fashion. The skin was reapproximated with 4-0 Monocryl in a subcuticular fashion. The incision was then covered with steri strips and a pressure dressing. The proced ure was then ended. The patient tolerated the procedure well and was taken to the PACU in stable condition. All instrument, lap, and needle counts were correct 3.
[2020-11-03] MEDS ORDERED: WITCH HAZEL/ GLYCERIN PAD TP PRN (04:21)
[2020-11-03] MEDS ORDERED: MORPHINE 4 MG/1 ML INJ IV PRN (04:21)
[2020-11-03] MEDS ORDERED: LANOLIN/ZINC/DIMETHICONE (LANSINOH) 7 GM TP PRN (04:21)
[2020-11-03] MEDS ORDERED: NALOXONE 0.4 MG/1 ML INJ IV PRN (04:21)
[2020-11-03] MEDS ORDERED: MORPHINE 2 MG/1 ML INJ IV PRN (04:21)
[2020-11-03] MEDS ORDERED: MAGNESIUM HYDROXIDE (MOM) ORAL LIQD UDC PO PRN (04:21)
[2020-11-03] MEDS ORDERED: SIMETHICONE 80 MG CHEW TAB PO PRN (04:21)
[2020-11-03] MEDS: D5W/LACTATED RINGERS 1,000 ML IV SCH ×2 (05:18→20:58)
--- NOTE | 2020-11-03 07:57 | Anesthesia Day of Surgery ---
Anesthesia Day of Surgery - Day of Surgery Patient Examined: Yes Patient H&P Reviewed: Yes Patient is NPO: Yes Beta Blockers: No Cardiac Clearance: No Pulmonary Clearance: No Rj's Test: N/A
--- NOTE | 2020-11-03 07:58 | Progress Note ---
Regional Anesthesia Block - Regional Anesthesia Block Start Time: 03:09 Stop Time: 03:14 Performed By:: LINDA CHENG Procedure: Patient consented for TAP block for post surgical pain management. Patient identified, monitors placed, and time out performed. Mid axillary TAP identified bilaterally via ultrasound. Skin prepped bilaterally with [chlorhexidine] and [20g stimuplex] needle advanced to the TAP. 30ml [Marcaine 0.25% with 25mcg Pre cedex and Decadron 5mg] injected under ultrasound guidance on the [left] side. 30ml [Marcaine 0.25% with 25mcg Precedex and Decadron 5mg] injected under ultrasound guidance on the [right] side. Negative aspiration every 5mL, Patient tolerated the procedure well. No apparent complications seen.
[2020-11-03] MEDS: KETOROLAC 30 MG/1 ML INJ IV SCH ×3 (08:46→19:53)
--- NOTE | 2020-11-03 10:18 | Post Anesthesia Evaluation ---
- Post Anesthesia Evaluation Patient Participated: Yes Airway Patent: Yes Stable Respiratory Function: Yes Nausea/Vomiting: No Temp > 96.8F: Yes Pain Manageable: Yes Adequeate Hydration: Yes Anesthesia Complications: No Block Receding Appropriately: Yes Patient on Ventilator: No
[2020-11-03] MEDS: CLINDAMYCIN 600 MG/50 mL 600 MG/50 ML BAG IV SCH ×2 (11:48→20:59)
[2020-11-03] MEDS: FERROUS SULFATE 325 MG TAB PO SCH (11:56)
[2020-11-03 19:51] LABS: Hematocrit 28.7 % (30.3-42.9)
[2020-11-04] MEDS ORDERED: KETOROLAC 30 MG/1 ML INJ IV SCH (02:00)
[2020-11-04] MEDS: KETOROLAC 30 MG/1 ML INJ IV SCH (02:05)
[2020-11-04] MEDS ORDERED: MEASLES, MUMPS & RUBELLA 12,500 UNIT/0.5 ML VACCINE SUB-Q ONE (03:09)
[2020-11-04] MEDS ORDERED: TETANUS,DIPH,PERTUSS(ACELL) VACCINE 0.5 ML SYRINGE IM ONE (06:00)
[2020-11-04] MEDS: oxyCODONE /ACETAMINOPHEN 5-325MG TAB PO PRN ×3 (06:43→18:04)
[2020-11-04] MEDS: FERROUS SULFATE 325 MG TAB PO SCH (10:08)
[2020-11-04] MEDS: IBUPROFEN 800 MG TAB PO PRN ×2 (10:15→23:08)
--- NOTE | 2020-11-04 10:54 | Progress Note ---
Assessment and Plan - Patient Problems (1) Status post primary low transverse section Current Visit: Yes Status: Acute Plan to address problem: Continue routine PP orders Keep dressing clean and dry, remove on POD#2 Anticipate d/c home in 24-48 hrs if stable (2) Anemia Current Visit: Yes Status: Acute Qualifiers: Anemia type: iron deficiency Plan to address problem: Asymptomatic Increase iron rich foods into diet Continue daily oral iron supplementation as ordered. Subjective - Subjective Date of service: 11/04/20 Principal diagnosis: S/P primary C/S; POD#1 Interval history: Pt is a 30 year old -Greek female JOSÉ 11/12/2020 at 38w5d presents for induction of labor secondary to chronic hypertension. She denies vaginal bleeding or leakage of fluid. She does have irregular contractions. She has had care at [facility] with comanagement at [facility] secondary to chronic hypertension, genital herpes without lesion or prodrome, h/o labor and delivery at 36 wks, migraines s/p Neurology referral and Fioricet, Obesity, Rh negative s/p Rhogam, trichomonas treated with negative test of cure. She is GBS positive. Progressed to 4 cm but began having repetitive late decelerations with each contraction. The decision was made to proceed to section. Patient reports: appetite normal, voiding normally, pain well controlled (with medications), flatus, ambulating normally, no bowel movement [place]: doing well, bottle feeding (and ) Objective - Vital Signs Latest vital signs: Vital Signs Temp Pulse Resp BP BP Pulse Ox Pulse Ox 11/04/20 10:15 16 11/04/20 07:50 98.2 F 67 16 101/54 98 11/04/20 07:30 98 11/04/20 06:43 18 11/04/20 02:05 16 11/04/20 00:00 98.6 F 74 18 118/73 11/03/20 19:53 18 11/03/20 19:40 98.7 F 76 18 113/61 98 11/03/20 18:09 98.2 F 78 16 112/56 98 11/03/20 13:09 97.9 F 84 18 112/60 98 Intake and Output 11/03/20 11/04/20 11/04/20 23:59 07:59 15:59 Output Total 900 Balance -900 Output: Urine 900 Void 900 Other: Total, Output Amount 600 # Voids Void 1 1 1 - Exam Breasts: Present: normal Cardiovascular: Present: Normal S1 Lungs: Present: Normal air movement Abdomen: Present: soft, tenderness Uterus: Present: firm, fundal height below umbilicus (U-2) Extremities: Present: edema Deep Tendon Reflex Grade: Normal +2 Incision: Present: dressed (no shadow drainage or bleeding noted) - Labs Labs: Abnormal lab results 11/03/20 Range/Units 17:38 Hgb 9.0 L (10.1-14.3) gm/dl Hct 28.7 L (30.3-42.9) %
[2020-11-05] MEDS: oxyCODONE /ACETAMINOPHEN 5-325MG TAB PO PRN ×2 (00:58→10:03)
[2020-11-05] MEDS: IBUPROFEN 800 MG TAB PO PRN ×2 (05:20→17:14)
[2020-11-05] MEDS: FERROUS SULFATE 325 MG TAB PO SCH (10:07)
--- NOTE | 2020-11-05 15:39 | Progress Note ---
Assessment and Plan A: POD#2 s/p primary section at term Obesity P: Routine postoperative care Discharge today per pt request with follow up in 1 wk for BP check Subjective - Subjective Date of service: 11/05/20 Principal diagnosis: S/P primary C/S; POD#2 Interval history: Pt feels well. She asks to go home because she misses her older daughter, and feels isolated due to COVID 19 protocols. + flatus. No bowel movement. Patient reports: appetite normal, voiding normally, pain well controlled, flatus, ambulating normally, no bowel movement : doing well Objective - Vital Signs Latest vital signs: Vital Signs Temp Pulse Resp BP Pulse Ox Pulse Ox 11/05/20 14:47 98 11/05/20 12:21 98 11/05/20 10:00 98 11/05/20 08:29 97 11/05/20 08:26 98.2 F 77 18 108/47 99 11/05/20 05:20 97 11/05/20 03:30 99 11/05/20 02:10 97 11/05/20 00:58 18 11/05/20 00:49 98.0 F 73 18 113/64 98 11/05/20 00:05 99 11/04/20 23:08 20 11/04/20 21:40 98 11/04/20 20:00 98 11/04/20 18:04 16 11/04/20 16:13 98.5 F 69 20 121/64 100 Intake and Output 11/05/20 11/05/20 11/05/20 06:59 14:59 22:59 Intake Total 300 Output Total 600 Balance 300 -600 Intake: Intake, Free Water 300 Output: Urine 600 Void 600 Other: Total, Output Amount 600 # Voids Void 1 1 - Exam Breasts: Present: deferred Abdomen: Present: soft (obese ) Uterus: Present: normal Extremities: Present: normal Incision: Present: intact
--- NOTE | 2020-11-05 15:41 | Discharge Summary ---
Providers - Providers Date of Admission: 11/02/20 08:57 Date of discharge: 11/05/20 Attending physician: HANH KHOURY 11/03/20 04:21 Consult to Social Work Supervisor [CONS] Routine Reason For Exam: Primary care physician: HANH KHOURY Hospitalization Reason for admission: induction of labor Delivery: Procedure: section, primary low transverse Procedure details: Please see op note Incision: intact Other procedures: none complications: none Discharge diagnosis: IUP at term delivered [place] baby: male Hospital course: Pt was admitted for induction for chronic hypertension. She underwent primary section which she tolerated well. Her postop course was uncomplicated. She will follow up in 1 wk for an BP check. Condition at discharge: Stable Disposition: 01 HOME / SELF CARE / HOMELESS - Discharge Diagnoses (1) Obesity Status: Acute Qualifiers: Obesity type: unspecified obesity type Obesity classification: adult class 1 (BMI 30 - 34.9) Serious obesity comorbidity presence: unspecified whether serious comorbidity present Body mass index: BMI 31.0-31.9 Qualified Code(s): E66.9 - Obesity, unspecified; Z68.31 - Body mass index [BMI] 31.0-31.9, adult (2) Chronic hypertension Status: Acute (3) Anemia Status: Acute Qualifiers: Anemia type: iron deficiency (4) Status post primary low transverse section Status: Acute Plan - Discharge Medications Prescriptions: Ferrous Sulfate [Feosol 325 MG tab] 325 mg PO BID #60 tablet Ibuprofen [Motrin] 800 mg PO Q8HR PRN #30 tablet PRN Reason: Pain, Moderate (4-6) oxyCODONE /ACETAMINOPHEN [Percocet 5/325] 1 tab PO Q6HR PRN #30 tablet PRN Reason: Pain - Provider Discharge Summary Activity: routine, no sex for 6 weeks, no heavy lifting 4 weeks, no strenuous exercise Diet: routine Instructions: routine Additional instructions: [] Smoking cessation referral if applicable(refer to patient education folder for contact #) [] Refer to [facility] Booklet Call your doctor immediately for: * Fever > 100.5 * Heavy vaginal bleeding ( >1 pad per hour) * Severe persistent headache * Shortness of breath * Reddened, hot, painful area to leg or breast * Drainage or odor from incision. * Keep incision clean and dry at all times and follow doctor's instructions regarding bathing/showering - Follow up plan Follow up: HANH KHOURY MD [Primary Care Provider] - 7 Days Forms: Work/School Release Form
[2020-11-05] MEDS ORDERED: LACTULOSE 20 GM/30 ML ORAL LIQD PO ONE (16:00)
[2020-11-05 17:15] VITALS: BP 109/56
== END 2020-11-05 17:20 | disposition home or self-care (01) | DRG 787 ==
LOC: TRG 08:56 → LD 08:57 → TRG 10:22 → OB 11-03 04:19
PROVIDERS: ADMIT Obstetrics & Gynecology; ATTEND Obstetrics & Gynecology
PROC: 3E033VJ Introduction of Other Hormone into Peripheral Vein, Percutaneous Approach (ICD-10-PCS; 2020-11-02)
PROC: 10D00Z1 Extraction of Products of Conception, Low, Open Approach (ICD-10-PCS; principal; 2020-11-03)
PROC: 3E0T3BZ Introduction of Anesthetic Agent into Peripheral Nerves and Plexi, Percutaneous Approach (ICD-10-PCS; 2020-11-03)
PROC: 3E0R3BZ Introduction of Anesthetic Agent into Spinal Canal, Percutaneous Approach (ICD-10-PCS; 2020-11-03)
PROC: 00HU33Z Insertion of Infusion Device into Spinal Canal, Percutaneous Approach (ICD-10-PCS; 2020-11-03)
PROC: 3E0234Z Introduction of Serum, Toxoid and Vaccine into Muscle, Percutaneous Approach (ICD-10-PCS; 2020-11-04)
PROC: 3E0134Z Introduction of Serum, Toxoid and Vaccine into Subcutaneous Tissue, Percutaneous Approach (ICD-10-PCS; 2020-11-04)
DX: O10.02 Pre-existing essential hypertension complicating childbirth (principal); O98.32 Other infections with a predominantly sexual mode of transmission complicating childbirth; O99.354 Diseases of the nervous system complicating childbirth; Z3A.38 38 weeks gestation of pregnancy; Z37.0 Single live birth; O76 Abnormality in fetal heart rate and rhythm complicating labor and delivery; E66.9 Obesity, unspecified; D50.9 Iron deficiency anemia, unspecified; A60.00 Herpesviral infection of urogenital system, unspecified; O99.824 Streptococcus B carrier state complicating childbirth; G43.909 Migraine, unspecified, not intractable, without status migrainosus; O26.893 Other specified pregnancy related conditions, third trimester; Z20.822 Contact with and (suspected) exposure to COVID-19; O62.2 Other uterine inertia; O77.0 Labor and delivery complicated by meconium in amniotic fluid; O99.02 Anemia complicating childbirth; O99.214 Obesity complicating childbirth; Z82.49 Family history of ischemic heart disease and other diseases of the circulatory system; Z83.3 Family history of diabetes mellitus; Z67.21 Type B blood, Rh negative; Z88.8 Allergy status to other drugs, medicaments and biological substances; Z23 Encounter for immunization
CPT/HCPCS: 36415; 85014; 85018; 85027; 86592; 86850; 86870; 86900; 86901; 88307; 99211; G0378; A6250; G0463; J0290; J1885; J2270; J2405; J2590; J2765; J7120; J7121; U0003